=== PATIENT | female | born 1990 | race Caucasian/White ===

== ENCOUNTER 2018-02-06 01:10 | Inpatient (IN) | payer OTHER ==
--- OUTSIDE RECORDS SUMMARY | 2018-02-06 01:13 | XMS REPORT ---
:1990 Author Organization eClinicalWorks Care Team Providers Name Role Phone Eddi Oro Provider Role Unavailable Allergies No Known Allergies Problems Problem Type Condition Code Onset Dates Condition Status Assessment Diverticula of colon K57.30 Active Assessment Melena K92.1 Active Problem Diverticula of colon K57.30 Active Medications Medication Code Code Instructions Start End Status Dosage System Date Date Clonazepam [facility] [place] 2] 54148127244 0.5 MG Orally Active 1 tablet PRN for anxiety at bedtime Flagyl ND 54135373342 500 MG Orally December Active 1 tablet every 8 hrs 2017 Ciprofloxacin ND 59843336983 500 MG Orally December Active 1 tablet HCl every 12 hrs 2017 ProAir HFA [facility] [place]NOTE 2] 59976793471 108 (90 Base) Sep 24, Active 2 puffs MCG/ACT 2017 as needed Inhalation every 6 hrs Doxycycline ND 06758342932 100 MG Orally Sep 24, Active 1 capsule Hyclate every 12 hrs 2017 Phenergan [facility] [place]NOTE 2] [address]-12 25mg Po Q 12 DecemberJanuary 07, Active one hours 2017 2018 tablet Tessalon Perles [facility] [place]NOTE 2] 07341924374 100 MG Orally Sep 24, Active 1 capsule Three times a 2018 as needed day Results Name Result Date Reference Range Unit Abnormality Flag CBC (only/No Diff) CT ABDOMEN W CONTRAST Summary Purpose eClinicalWorks Submission
--- OUTSIDE RECORDS SUMMARY | 2018-02-06 01:13 | XMS REPORT ---
:1990 Author Organization eClinicalWorks Care Team Providers Name Role Phone Eddi Oro Provider Role Unavailable Allergies No Known Allergies Problems Problem Type Condition Code Onset Dates Condition Status Problem Diverticula of colon K57.30 Active Medications No Known Medications Results No Known Results Summary Purpose eClinicalWorks Submission
[2018-02-06 02:00] LABS: Absolute Lymphocytes (CBC) 2.2 K/uL (0.7-4.9); Absolute Monocytes 0.8 K/uL (0.1-1.3); Absolute Neutrophil 18.8 K/uL (1.8-8.0); Basophils % 0.4 % (0-1.3); Eosinophils % 0.9 % (0-4.4); MCH 29.7 pg (27.0-35.0); MPV 8.4 fL (7.6-11.3); Monocytes % 3.7 % (3.3-12.3); RBC Red Blood Cell Count 4.94 M/uL (3.86-4.86)
[2018-02-06 02:12] LABS: Bicarbonate 23 mEq/L (21-31); Glucose Level 146 mg/dL (65-120); Lipase 26 U/L (22-51); Potassium 3.7 mEq/L (3.6-5.0); Sodium Level 135 mEq/L (135-145)
[2018-02-06 02:18] LABS: ALT/SGPT 21 IU/L (10-60); AST/SGOT 27 IU/L (10-42); Albumin 4.1 g/dL (3.2-5.5); Alkaline Phosphatase 89 IU/L (42-121); BUN Blood Urea Nitrogen 11 mg/dL (6-20); Bilirubin Direct < 0.1 mg/dL (0-0.2); Bilirubin Total 0.4 mg/dL (0.3-1.2)
[2018-02-06] MEDS ORDERED: MORPHINE 4 MG/ML SYR ONE (02:37)
[2018-02-06] MEDS ORDERED: NA CHLORIDE 0.9% 1,000 ML ONE (02:37)
[2018-02-06 02:38] LABS: Blood Morphology Comment NOT SEEN (NOT SEEN); Platelet Estimate ADEQ
[2018-02-06] MEDS ORDERED: ONDANSETRON 4 MG/2 ML VIAL ONE ×2 (02:39→05:49)
[2018-02-06 02:43] LABS: Urine Specific Gravity >1.030 (1.005-1.030)
[2018-02-06 02:44] LABS: Urine Blood 1+ (NEG); Urine Glucose NEGATIVE (NEG); Urine Protein TRACE (NEG); Urine Specific Gravity >1.030 (1.005-1.030)
[2018-02-06 02:45] LABS: Calcium Oxalate Crystals- Ur FEW (NONE SEEN); Urine Bacteria <20 /HPF (<20); Urine Culture Reflex Order NOT NEEDED; Urine RBC <5 /HPF (NONE SEEN)
--- NOTE | 2018-02-06 05:26 | ER ---
Nurse's Notes [facility] Name: Fawn Larson Age: 27 yrs Sex: Female : 1990 Arrival Date: 02/06/2018 Time: 01:14 Bed 15 Private MD: Diagnosis: Left sided colitis;Elevated white blood cell count;Generalized abdominal pain Presentation: 02/06 01:36 Presenting complaint: Patient states: diarrhea since 1700 yesterday afternoon and has aa1 begun to have bright red blood in her stool. Also reports lower abd pain and nausea. Transition of care: patient was not received from another setting of care. Onset of symptoms was February 05, 2018 at 17:00. Risk Assessment: Do you want to hurt yourself or someone else? Patient reports no desire to harm self or others. Initial Sepsis Screen: Does the patient meet any 2 criteria? HR > 90 bpm. Does the patient have a suspected source of infection? Yes: Acute abdominal pain. Care prior to arrival: None. 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 - Social history:: Smoking status: Patient uses tobacco products, smokes one-half pack cigarettes per day. - Ebola Screening: : Patient denies exposure to infectious person Patient denies travel to an Ebola-affected area in the 21 days before illness onset. Screenin:41 Abuse screen: Denies threats or abuse. Denies injuries from another. Nutritional aa1 screening: No deficits noted. Tuberculosis screening: No symptoms or risk factors identified. Fall Risk None identified. Assessment: 01:41 General: Appears in no apparent distress. comfortable, Behavior is cooperative, aa1 appropriate for age, anxious. Pain: Complains of pain in right lower quadrant and left lower quadrant Is continuous. Neuro: Level of Consciousness is awake, alert, obeys commands, Oriented to person, place, time, situation, Moves all extremities. Full function Gait is steady, Speech is normal. Cardiovascular: Denies chest pain, palpitations, shortness of breath. Respiratory: Airway is patent Respiratory effort is even, unlabored, Respiratory pattern is regular, symmetrical. GI: Abdomen is non-distended, Bowel sounds present X 4 quads. Abd is soft X 4 quads Reports lower abdominal pain, diarrhea, bloody stool, nausea. : No signs and/or symptoms were reported regarding the genitourinary system. EENT: No signs and/or symptoms were reported regarding the EENT system. Derm: Skin is intact, is healthy with good turgor, Skin is pink, warm \T\ dry. Musculoskeletal: Circulation, motion, and sensation intact. Capillary refill < 3 seconds. 02:24 Reassessment: Patient appears in no apparent distress at this time. Patient and/or aa1 family updated on plan of care and expected duration. Pain level reassessed. Patient is alert, oriented x 3, equal unlabored respirations, skin warm/dry/pink. notified Britni in [place] that pt has finished PO contrast. 03:43 Reassessment: Patient appears in no apparent distress at this time. Patient is alert, aa1 oriented x 3, equal unlabored respirations, skin warm/dry/pink. Pt taken to CT. 04:45 Reassessment: Patient appears in no apparent distress at this time. Patient and/or aa1 family updated on plan of care and expected duration. Pain level reassessed. Patient is alert, oriented x 3, equal unlabored respirations, skin warm/dry/pink. Awaiting CT results. Vital Signs: 01:39 BP 129 / 98; Pulse 129; Resp 20; Temp 98.2(O); Pulse Ox 99% on R/A; Weight 83.01 kg; aa1 Height 5 ft. 2 in. (157.48 cm); Pain 8/10; 02:44 BP 129 / 92; Pulse 72; Resp 18; Pulse Ox 96% on R/A; aa1 03:30 BP 126 / 85; Pulse 64; Resp 16; Pulse Ox 99% on R/A; aa1 05:08 BP 119 / 79; Pulse 60; Resp 16; Pulse Ox 98% on R/A; aa1 06:30 BP 111 / 81; Pulse 59; Resp 16; Pulse Ox 96% on R/A; aa1 07:15 BP 109 / 77; Pulse 67; Resp 18; Pulse Ox 98% ; sv 01:39 Body Mass Index 33.47 (83.01 kg, 157.48 cm) aa1 ED Course: 01:14 Patient arrived in ED. es 01:35 Mireya Meier, RN is Primary Nurse. aa1 01:37 Triage completed. aa1 01:39 Arm band placed on right wrist. Patient placed in an exam room, on a stretcher. aa1 01:41 Patient has correct armband on for positive identification. Placed in gown. Bed in low aa1 position. Call light in reach. Pulse ox on. NIBP on. Warm blanket given. 01:42 Johny Goldberg NP is PHCP. pm1 01:42 Markos Bobby MD is Attending Physician. pm1 01:46 Inserted saline lock: 20 gauge in right antecubital area, using aseptic technique. oe Blood collected. 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 aa1 03:[address] via wheelchair. kw1 03:53 CT completed. Patient tolerated procedure well. Patient moved back from CT. kw1 03:58 CT Abd/Pelvis - W/Contrast In Process Unspecified. EDMS 05:25 Eddi Oro MD is Hospitalizing Provider. otto 07:37 Patient admitted, IV remains in place. intact. sv Administered Medications: 02:41 Drug: NS 0.9% 1000 ml Route: IV; Rate: 1000 ml; Site: right antecubital; aa1 02:42 Drug: morphine 4 mg Route: IVP; Site: right antecubital; aa1 02:43 Drug: Zofran 4 mg Route: IVP; Site: right antecubital; aa1 05:52 Drug: Cipro 400 mg Volume: 200 ml; Route: IVPB; Infused Over: 60 mins; Site: right ea antecubital; 05:52 Drug: Zofran 4 mg Route: IVP; Site: right antecubital; ea 05:53 Drug: Flagyl 500 mg Volume: 100 ml; Route: IVPB; Rate: 200 ml/hr; Infused Over: 30 ea mins; Site: right antecubital; 06:12 Drug: morphine 4 mg Route: IVP; Site: right antecubital; ea Outcome: 05:26 Decision to Hospitalize by Provider. otto 07:36 Admitted to Med/surg accompanied by tech, via stretcher, room 208, with chart, Report sv called to Jojo PROCTOR 07:36 Condition: stable 07:36 Instructed on the need for admit. 07:55 Patient left the ED. sv Signatures: Dispatcher [employer] Lina Ambrose, RN RN Mireya Sarabia RN RN aa1 Markos Bobby MD MD cha Salyer, Edna es Marinas, Patrick, CYCLE MANAGER CYCLE MANAGER pm1 Larry Mari Elena, RN RN Zelda Brink kw1
--- NOTE | 2018-02-06 05:27 | EDPHYS ---
Physician Documentation [facility] Name: Fwan Larson Age: 27 yrs Sex: Female : 1990 Arrival Date: 02/06/2018 Time: 01:14 Bed 15 Private MD: ED Physician Markos Bobby HPI: 02/06 02:00 This 27 yrs old Female presents to ER via Ambulatory with complaints of pm1 Bloody Stools, Abdominal Pain. 02:00 The patient presents with abdominal pain in the lower abdomen. pm1 02:00 Onset: The symptoms/episode began/occurred yesterday. The symptoms do not radiate. pm1 Associated signs and symptoms: Pertinent positives: blood in stools, Pertinent negatives: chest pain, dysuria, fever, shortness of breath. The symptoms are described as achy, intermittent. Modifying factors: The symptoms are alleviated by nothing, the symptoms are aggravated by nothing. Severity of pain: in the emergency department the pain is actually worse. The patient has experienced a previous episode, approximately 1 months ago. Patient was diagnosed with diverticulitis 1 month ago by PCP with CT scan and resolved with outpatient PO antibiotics. Patient reports constant pain at that time that was located in the left lower quadrant with some blood in her stool. Today's pain is intermittent across the lower abdomen. 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 - Social history:: Smoking status: Patient uses tobacco products, smokes one-half pack cigarettes per day. - Ebola Screening: : Patient denies exposure to infectious person Patient denies travel to an Ebola-affected area in the 21 days before illness onset. ROS: 02:00 Constitutional: Negative for fever, chills, and weight loss, Eyes: Negative for injury, pm1 pain, redness, and discharge, ENT: Negative for injury, pain, and discharge, Neck: Negative for injury, pain, and swelling, Cardiovascular: Negative for chest pain, palpitations, and edema, Respiratory: Negative for shortness of breath, cough, wheezing, and pleuritic chest pain, Back: Negative for injury and pain, : Negative for injury, bleeding, discharge, and swelling, MS/Extremity: Negative for injury and deformity, Skin: Negative for injury, rash, and discoloration. 02:00 Neuro: Negative for headache, weakness, numbness, tingling, and seizure. 02:00 Abdomen/GI: Positive for abdominal pain, nausea, rectal bleeding, Negative for vomiting, diarrhea, constipation. Exam: 02:00 Constitutional: This is a well developed, well nourished patient who is awake, alert, pm1 and in no acute distress. Head/Face: Normocephalic, atraumatic. Eyes: Pupils equal round and reactive to light, extra-ocular motions intact. Lids and lashes normal. Conjunctiva and sclera are non-icteric and not injected. Cornea within normal limits. Periorbital areas with no swelling, redness, or edema. ENT: Nares patent. No nasal discharge, no septal abnormalities noted. Tympanic membranes are normal and external auditory canals are clear. Oropharynx with no redness, swelling, or masses, exudates, or evidence of obstruction, uvula midline. Mucous membranes moist. Neck: Trachea midline, no thyromegaly or masses palpated, and no cervical lymphadenopathy. Supple, full range of motion without nuchal rigidity, or vertebral point tenderness. No Meningismus. Chest/axilla: Normal chest wall appearance and motion. Nontender with no deformity. No lesions are appreciated. Cardiovascular: Regular rate and rhythm with a normal S1 and S2. No gallops, murmurs, or rubs. Normal PMI, no JVD. No pulse deficits. Respiratory: Lungs have equal breath sounds bilaterally, clear to auscultation and percussion. No rales, rhonchi or wheezes noted. No increased work of breathing, no retractions or nasal flaring. 02:00 Back: No spinal tenderness. No costovertebral tenderness. Full range of motion. Skin: Warm, dry with normal turgor. Normal color with no rashes, no lesions, and no evidence of cellulitis. MS/ Extremity: Pulses equal, no cyanosis. Neurovascular intact. Full, normal range of motion. 02:00 Abdomen/GI: Inspection: abdomen appears normal, Bowel sounds: normal, Palpation: mild abdominal tenderness, in the right lower quadrant and left lower quadrant, mass, is not appreciated, rebound tenderness, is not appreciated. 02:00 Neuro: Orientation: is normal, Motor: moves all fours. 03:00 Abdomen/GI: Rectal exam: rectal tone normal, Stool: guaiac negative, hemorrhoid(s), pm1 external, with inflammation, with pain, without thrombosis, mass, is not appreciated, swelling, is not appreciated, Jayashree PROCTOR. Vital Signs: 01:39 BP 129 / 98; Pulse 129; Resp 20; Temp 98.2(O); Pulse Ox 99% on R/A; Weight 83.01 kg; aa1 Height 5 ft. 2 in. (157.48 cm); Pain 8/10; 02:44 BP 129 / 92; Pulse 72; Resp 18; Pulse Ox 96% on R/A; aa1 03:30 BP 126 / 85; Pulse 64; Resp 16; Pulse Ox 99% on R/A; aa1 05:08 BP 119 / 79; Pulse 60; Resp 16; Pulse Ox 98% on R/A; aa1 06:30 BP 111 / 81; Pulse 59; Resp 16; Pulse Ox 96% on R/A; aa1 07:15 BP 109 / 77; Pulse 67; Resp 18; Pulse Ox 98% ; sv 01:39 Body Mass Index 33.47 (83.01 kg, 157.48 cm) aa1 MDM: 01:58 Patient medically screened. otto 05:19 Patient medically screened. toto 02/06 01:46 Order name: Basic Metabolic Panel; Complete Time: 02:28 pm02/06 01:46 Order name: CBC with Diff; Complete Time: 02:47 pm1 02/06 01:46 Order name: Creatinine for Radiology; Complete Time: 02:15 pm02/06 01:46 Order name: Hepatic Function; Complete Time: 02:28 pm02/06 01:46 Order name: Lipase; Complete Time: 02:28 pm02/06 01:46 Order name: Urine Microscopic Only; Complete Time: 02:47 pm1 02/06 02:10 Order name: Urine Dipstick--Ancillary (enter results); Complete Time: 02:47 cc 02/06 02:11 Order name: Urine --Ancillary (enter results) cc 02/06 02:12 Order name: Urine --Ancillary; Complete Time: 02:47 EDMS 02/06 02:12 Order name: Manual Differential; Complete Time: 02:47 EDMS 02/06 05:22 Order name: Stool Culture [facility] 02/06 05:22 Order name: CDIFF [facility] 02/06 05:22 Order name: Fecal Leukocyte Stain [facility] 02/06 05:31 Order name: Basic Metabolic Panel EDAK 02/06 01:46 Order name: CT Abd/Pelvis - W/Contrast pm1 02/06 05:30 Order name: CONS Physician Consult EDMS 02/06 05:31 Order name: Basic Metabolic Panel EDMS 02/06 05:31 Order name: CBC with Automated Diff EDMS 02/06 05:31 Order name: CBC with Automated Diff EDMS 02/06 05:32 Order name: Lipase EDMS 02/06 05:32 Order name: Lipase EDMS 02/06 05:32 Order name: Liver (Hepatic) Function EDMS 02/06 05:32 Order name: Liver (Hepatic) Function EDMS 02/06 01:46 Order name: Urine Test (obtain specimen); Complete Time: 02:08 pm02/06 01:46 Order name: IV Saline Lock; Complete Time: 02:10 pm02/06 01:46 Order name: Labs collected and sent; Complete Time: 02:10 pm02/06 01:46 Order name: Urine Dipstick-Ancillary (obtain specimen); Complete Time: 02:08 pm1 Administered Medications: 02:41 Drug: NS 0.9% 1000 ml Route: IV; Rate: 1000 ml; Site: right antecubital; aa1 02:42 Drug: morphine 4 mg Route: IVP; Site: right antecubital; aa1 02:43 Drug: Zofran 4 mg Route: IVP; Site: right antecubital; aa1 05:52 Drug: Cipro 400 mg Volume: 200 ml; Route: IVPB; Infused Over: 60 mins; Site: right ea antecubital; 05:52 Drug: Zofran 4 mg Route: IVP; Site: right antecubital; ea 05:53 Drug: Flagyl 500 mg Volume: 100 ml; Route: IVPB; Rate: 200 ml/hr; Infused Over: 30 ea mins; Site: right antecubital; 06:12 Drug: morphine 4 mg Route: IVP; Site: right antecubital; ea Disposition: 02/06/18 05:26 Hospitalization ordered by Eddi Oro for Inpatient Admission. Preliminary diagnosis are Left sided colitis, Elevated white blood cell count, Generalized abdominal pain. - Bed requested for Telemetry/MedSurg (Inpatient). - Status is Inpatient Admission. sv - Condition is Fair. - Problem is new. - Symptoms have improved. UTI on Admission? No Addendum: 02/08/2018 06:53 Co-signature as Attending Physician, Markos Bobby MD I agree with the assessment and c jennings plan of care. Signatures: Dispatcher [employer] EDMS Zelda Maxwell RN RN Lina Mendez RN Mireya Rousseau RN RN aa1 Markos Bobby MD MD cha Marinas, Patrick, PURCHASING ASSOCIATE PURCHASING ASSOCIATE pm1 Deborah Mora RN RN ea Corrections: (The following items were deleted from the chart) 02/06 06:12 05:26 Hospitalization Ordered by Eddi Oro MD for Inpatient Admission. Preliminary diagnosis is Left sided colitis; Elevated white blood cell count; Generalized abdominal pain. Bed requested for Telemetry/MedSurg (Inpatient). Status is Inpatient Admission. Condition is Fair. Problem is new. Symptoms have improved. UTI on Admission? No. [facility] 07:55 06:12 02/06/2018 05:26 Hospitalization Ordered by Eddi Oro MD for Inpatient sv Admission. Preliminary diagnosis is Left sided colitis; Elevated white blood cell count; Generalized abdominal pain. Bed requested for Telemetry/MedSurg (Inpatient). Status is Inpatient Admission. Condition is Fair. Problem is new. Symptoms have improved. UTI on Admission? No. kl
[2018-02-06] MEDS ORDERED: MORPHINE 4 MG/ML SYR IV PRN (05:29)
[2018-02-06] MEDS ORDERED: ACETAMINOPHEN 500 MG TAB PO PRN (05:29)
[2018-02-06] MEDS ORDERED: METRONIDAZOLE 500mg IVPB 500 MG/100 ML BAG IV ONE (05:37)
[2018-02-06] MEDS ORDERED: CIPROFLOXACIN 400mg IV 400 MG/200 ML BAG IV ONE (05:37)
[2018-02-06] MEDS ORDERED: Morphine 2 MG/2 ML SYR ONE (06:04)
[2018-02-06] MEDS: D5 0.45 NS 1,000 ML IV SCH ×3 (09:00→21:33)
[2018-02-06] MEDS ORDERED: FAMOTIDINE 20 MG/2 ML VIAL IV SCH (09:00)
[2018-02-06] MEDS ORDERED: clonazePAM 0.5 MG TAB PO PRN (09:45)
--- NOTE | 2018-02-06 09:59 | RAD REPORT ---
EXAM DESCRIPTION: CT - Abdomen Pelvis W Contrast - 02/06/2018 6:48 am CLINICAL HISTORY: Abdominal pain, diarrhea, bloody stools, prior diverticulitis and polycystic ovary disease A preliminary written report was provided at the time of the study, and the report was reviewed prio r to final dictation. COMPARISON: CT imaging December 28 TECHNIQUE: Biphasic, helical CT imaging of the abdomen and pelvis was performed following 100 ml non -ionic IV contrast. Oral contrast was given. All CT scans are performed using dose optimization technique as appropriate and may include automated exposure control or mA/KV adjustment according to patient size. FINDINGS: No suspicious findings in the lung bases. The liver, spleen, and pancreas show no suspicious findings. Liver attenuation is borderline fatty in filtrated. No gallbladder or biliary tree abnormality. Symmetric renal function is seen with no hydronephrosis or suspicious renal mass. No pyelonephritis o r acute renal parenchymal process. No adrenal abnormality. Mostly contracted urinary bladder shows no suspicious finding. Uterus and ovaries also without suspicious finding. No gastric dilatation or wall thickening. Contrast in the distal esophagus could be from reflux or de creased peristalsis. No acute small bowel finding. No appendicitis findings. Wall thickening and jorge a involves the colon. This is [id number] in degree from hepatic flexure to rectum. Sigmoid and ascending wall thickening is more mild in degree. No free air, free fluid or inflammatory stranding. No significant hernia, mass or bulky lymphadenopathy. Patient has a very minimal umbilical hernia. No suspicious bony findings. IMPRESSION: Mild to moderate pancolitis pattern. No free air, abscess or surgically emergent finding . Nonacute findings detailed in the body of the report.
--- NOTE | 2018-02-06 10:04 | P.HP ---
Certification for Inpatient Patient admitted to: Observation With expected LOS: <2 Midnights Patient will require the following post-hospital care: None Practitioner: I am a practitioner with admitting privileges, knowledge of patient current condition, hospital course, and medical plan of care. 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 She suddenly started having abdominal pain and diarrhea last night. She had to go to the [facility] several times. When she started having some bright red blood with the diarrhea. Was in the bowel not on the paper. She had abdominal pain and nausea. She denied any recent travel. Visits to hospitals or nursing homes. No recent camping or fishing. No recent antibiotics. She was able to tolerate water. She was having nause. However did not vomit with water Allergies coconut Allergy (Verified 02/06/18 09:02) Nausea/Vomiting colloidal oatmeal Allergy (Verified 02/06/18 09:02) Anaphylaxis Home Medications: Clonazepam [Klonopin] 0.5 mg PO DAILY PRN 02/06/18 Review of Systems 10-point ROS is otherwise unremarkable Gastrointestinal: Nausea, Abdominal Pain, Diarrhea Physical Examination - Vital Signs Temperature: 98.2 F Blood Pressure: 109/77 Pulse: 67 Respirations: 18 - Physical Exam General: Alert, In no apparent distress HEENT: Atraumatic, PERRLA, Mucous membr. moist/pink, EOMI, Sclerae nonicteric Neck: Supple, 2+ carotid pulse no bruit, No LAD, Without JVD or thyroid abnormality Respiratory: Clear to auscultation bilaterally, Normal air movement Cardiovascular: Regular rate/rhythm, Normal S1 S2 Gastrointestinal: Normal bowel sounds, No tenderness Musculoskeletal: No tenderness Integumentary: No rashes Neurological: Normal gait, Normal speech, Normal strength at 5/5 x4 extr, Normal tone, Normal affect Lymphatics: No axilla or inguinal lymphadenopathy - Studies Laboratory Data (last 24 hrs) 02/06/18 01:45: Creatinine 0.72 02/06/18 01:45: WBC 22.1 H*, Hgb 14.7, Hct 43.0, Plt Count 411 H 02/06/18 01:45: Sodium 135, Potassium 3.7, BUN 11, Creatinine 0.67, Glucose 146 H, Total Bilirubin 0.4, AST 27, ALT 21, Alkaline Phosphatase 89, Lipase 26 Assessment and Plan - Problems (Diagnosis) (1) Diverticulitis Current Visit: Yes Status: Acute Plan: HB is stable. Will continue iv fluids. Will await the results of the ct scan and c dif. Will start her on a clear liquid diet. Awaiting Dr. Ahmadi's input. (2) Anxiety Current Visit: Yes Status: Acute Plan: Patient is fairly stable will continue her xanax in house. As an outpatient will work on weaning her off it. However not an appropriate discussion during an acute illness. Discharge Plan: Home Plan to discharge in: 48 Hours - Advance Directives Does patient have a Living Will: No Does patient have a Durable POA for Healthcare: No - Code Status/Comfort Care Code Status Assessed: Yes Code Status: Full Code Physician Review: Patient Assessed, Agree with Above Assessment and Plan Critical Care: No Time Spent Managing Pts Care (In Minutes): 30
[2018-02-06] MEDS: Morphine 2 MG/2 ML SYR IV PRN ×3 (10:47→21:29)
[2018-02-06] MEDS: METRONIDAZOLE 500mg IVPB 500 MG/100 ML BAG IV SCH ×3 (15:58→23:48)
[2018-02-06] MEDS: ENOXAPARIN 40 MG/0.4 ML SQ SCH (15:58)
[2018-02-06] MEDS: ONDANSETRON 4 MG/2 ML VIAL IV PRN (16:05)
[2018-02-06] MEDS: CIPROFLOXACIN 400mg IV 400 MG/200 ML BAG IV SCH (21:30)
[2018-02-07 04:57] LABS: Absolute Lymphocytes (CBC) 2.7 K/uL (0.7-4.9); Absolute Monocytes 0.6 K/uL (0.1-1.3); Basophils % 0.7 % (0-1.3); Eosinophils % 4.2 % (0-4.4); Hematocrit 36.6 % (36.0-45.0); MCH 30.1 pg (27.0-35.0); MCV 88.9 fL (80-100); MPV 8.1 fL (7.6-11.3); RBC Red Blood Cell Count 4.11 M/uL (3.86-4.86)
[2018-02-07 05:37] LABS: Bicarbonate 27 mEq/L (21-31); Glucose Level 102 mg/dL (65-120); Potassium 4.1 mEq/L (3.6-5.0); Sodium Level 140 mEq/L (135-145)
[2018-02-07 05:38] LABS: BUN Blood Urea Nitrogen < 5 mg/dL (6-20)
[2018-02-07] MEDS: METRONIDAZOLE 500mg IVPB 500 MG/100 ML BAG IV SCH ×2 (05:55→11:20)
[2018-02-07] MEDS: D5 0.45 NS 1,000 ML IV SCH ×3 (05:58→20:46)
[2018-02-07 08:45] LABS: Urine Appearance CLEAR; Urine Bilirubin NEGATIVE (NEG); Urine Blood NEGATIVE (NEG); Urine Color YELLOW; Urine Glucose NEGATIVE (NEG); Urine Protein NEGATIVE (NEG); Urine Specific Gravity <=1.005 (1.005-1.030); Urine Urobilinogen 0.2 mg/dL (0.2-1.0)
[2018-02-07] MEDS: PANTOPRAZOLE 40MG TABLET PO SCH (08:45)
[2018-02-07] MEDS: CIPROFLOXACIN 400mg IV 400 MG/200 ML BAG IV SCH ×2 (08:45→20:46)
[2018-02-07 08:46] LABS: Urine Microscopic Reflex NO UMIC
[2018-02-07] MEDS: ONDANSETRON 4 MG/2 ML VIAL IV PRN (11:20)
--- NOTE | 2018-02-07 12:40 | P.PN ---
Subjective Date of Service: 02/07/18 Primary Care Provider: Preethi Chief Complaint: bright red blood per rectum Subjective: Improving Review of Systems 10-point ROS is otherwise unremarkable Gastrointestinal: Diarrhea Physical Examination - Vital Signs Temperature: 98.8 F Blood Pressure: 109/63 Pulse: 60 Respirations: 20 Pulse Ox (%): 99 - Physical Exam General: Alert, In no apparent distress HEENT: Atraumatic, PERRLA, EOMI Neck: Supple, JVD not distended Respiratory: Clear to auscultation bilaterally, Normal air movement Cardiovascular: Regular rate/rhythm, Normal S1 S2 Gastrointestinal: Normal bowel sounds, No tenderness Musculoskeletal: No tenderness Integumentary: No rashes Neurological: Normal speech, Normal tone, Normal affect Lymphatics: No axilla or inguinal lymphadenopathy Assessment & Plan - Problems (Diagnosis) (1) Diverticulitis Current Visit: Yes Status: Acute Plan: still complaining of diarrhea. She is improving, able to tolerate clear liquid diet. Having less nausea. Will start her on lomotil. Advance her diet as tolerated. (2) Anxiety Current Visit: Yes Status: Acute Plan: Patient is fairly stable will continue her xanax in house. As an outpatient will work on weaning her off it. However not an appropriate discussion during an acute illness. Discharge Plan: Home Plan to discharge in: 24 Hours - Code Status/Comfort Care Code Status Assessed: No Code Status: Full Code Physician Review: Patient Assessed, Agree with Above Assessment and Plan Critical Care: No Time Spent Managing Pts Care (In Minutes): 20
[2018-02-07] MEDS: DIPHENOX/ATROP SULF 1 TAB PO PRN ×2 (14:30→20:56)
[2018-02-07] MEDS: ENOXAPARIN 40 MG/0.4 ML SQ SCH (18:35)
[2018-02-08] MEDS: D5 0.45 NS 1,000 ML IV SCH (05:27)
[2018-02-08] MEDS: PANTOPRAZOLE 40MG TABLET PO SCH (05:27)
[2018-02-08] MEDS ORDERED: MORPHINE 4 MG/ML SYR IV PRN (07:58)
[2018-02-08] MEDS: CIPROFLOXACIN 400mg IV 400 MG/200 ML BAG IV SCH (08:27)
--- NOTE | 2018-02-08 12:55 | P.DS ---
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 She suddenly started having abdominal pain and diarrhea last night. She had to go to the [facility] times. When she started having some bright red blood with the diarrhea. Was in the bowel not on the paper. She had abdominal pain and nausea. She denied any recent travel. Visits to hospitals or nursing homes. No recent camping or fishing. No recent antibiotics. She was able to tolerate water. She was having nause. However did not vomit with water Hospital Course: patient was admitted on iv fluids and antibiotics. She had her diet slowly advanced. She has been tolerating this. Her c dif was negative. will discharge her home on Cipro and lomotil. Follow up in the office in 2 weeks. Vital Signs/Physical Exam: Temp Pulse Resp BP Pulse Ox 96.7 F L 58 16 111/71 98 02/08/18 12:00 02/08/18 12:00 02/08/18 12:00 02/08/18 12:00 02/08/18 12:00 General: Alert, In no apparent distress HEENT: Atraumatic, PERRLA, EOMI Neck: Supple, JVD not distended Respiratory: Clear to auscultation bilaterally, Normal air movement Cardiovascular: Regular rate/rhythm, Normal S1 S2 Gastrointestinal: Normal bowel sounds, No tenderness Musculoskeletal: No tenderness Integumentary: No rashes Neurological: Normal speech, Normal tone, Normal affect Lymphatics: No axilla or inguinal lymphadenopathy Laboratory Data at Discharge: WBC 7.7 K/uL (4.3-10.9) D 02/07/18 04:22 Hgb 12.4 g/dL (12.0-15.0) 02/07/18 04:22 Hct 36.6 % (36.0-45.0) 02/07/18 04:22 Plt Count 302 K/uL (152-406) D 02/07/18 04:22 Sodium 140 mEq/L (135-145) 02/07/18 04:22 Potassium 4.1 mEq/L (3.6-5.0) 02/07/18 04:22 BUN < 5 mg/dL (6-20) L 02/07/18 04:22 Creatinine 0.75 mg/dL (0.44-1.00) 02/07/18 04:22 Glucose 102 mg/dL (65-120) 02/07/18 04:22 Total Bilirubin 0.4 mg/dL (0.3-1.2) 02/06/18 01:45 AST 27 IU/L (10-42) 02/06/18 01:45 ALT 21 IU/L (10-60) 02/06/18 01:45 Alkaline Phosphatase 89 IU/L (42-121) 02/06/18 01:45 Lipase 26 U/L (22-51) 02/06/18 01:45 Home Medications: Clonazepam [Klonopin] 0.5 mg PO DAILY PRN 02/06/18 Ciprofloxacin HCl [Cipro 500 MG Tablet] 500 mg PO BID 5 Days #10 tab 02/08/18 Diphenox/Atropine [Lomotil] 1 tab PO TIDP PRN #20 tab 02/08/18 New Medications: Ciprofloxacin HCl [Cipro 500 MG Tablet] 500 mg PO BID 5 Days #10 tab Diphenox/Atropine [Lomotil] 1 tab PO TIDP PRN #20 tab PRN Reason: Diarrhea Diet: Regular Activity: Ad sarah Followup: Eddi Oro MD [ACTIVE - CAN ADMIT] - 1-2 Weeks (Follow up in office in 1-2 weeks. Call to schedule an appointment. ) Time spent managing pt's care (in minutes): 25
== END 2018-02-08 13:00 | disposition home or self-care (01) | DRG 392 ==
LOC: ER 01:10 → ERHOLD 05:27 → 2ND 07:37
PROVIDERS: ADMIT Internal Medicine; ATTEND Internal Medicine
DX: K57.92 Diverticulitis of intestine, part unspecified, without perforation or abscess without bleeding (principal); F41.9 Anxiety disorder, unspecified; Z91.018 Allergy to other foods
CPT/HCPCS: 36415; 74177; 80048; 80076; 81003; 81015; 81025; 83690; 85025; 87045; 87046; 87493; 89055; 96374; 96375; 99285; J0744; J1650; J2270; J2405; J7030; Q9967

== ENCOUNTER 2018-10-28 07:38 | Emergency (ER) | payer OTHER ==
--- OUTSIDE RECORDS SUMMARY | 2018-10-28 07:40 | XMS REPORT ---
:1990 Author Organization eClinicalWorks Care Team Providers Name Role Phone Gina Prater Provider Role Unavailable Allergies, Adverse Reactions, Alerts Substance Reaction Event Type Oat meal, tongue swells, NKDA Info Not Available Non Drug Allergy Problems Problem Type Condition Code Onset Dates Condition Status Assessment Non-recurrent acute suppurative H66.003 Active otitis media of both ears without spontaneous rupture of tympanic membranes Problem Calcaneal spur of left foot M77.32 Active Assessment Anxiety F41.9 Active Assessment Cigarette nicotine dependence F17.210 Active without complication Problem Cigarette nicotine dependence F17.210 Active without complication Problem Diverticular disease K57.90 Active Problem Anxiety F41.9 Active Problem Seasonal and perennial allergic J30.9 Active rhinitis Problem Diverticula of colon K57.30 Active Problem Depression with anxiety F41.8 Active Problem Sinus problem J34.9 Active Medications Medication Code Code Instructions Start End Status Dosage System Date Date Etodolac [facility] 16451428278 300 MG Orally Jul 13, Active 1 capsule Twice a day 2018 with food Clonazepam [facility] 06238198716 0.5 MG Orally Active 1 tablet PRN for anxiety at bedtime ProAir HFA [facility] 11517368760 108 (90 Base) Sep 24, Active 2 puffs as MCG/ACT 2018 needed Inhalation every 6 hrs Amoxicillin ND 37244246069 875 MG Orally Sep 14, Sep 21, Active 1 capsule Twice a day 2018 2019 BuPROPion HCl ND 97835886099 150 MG Orally Sep 14, Active 1 tablet ER (Smoking Once a day 2019 in the Det) morning Results No Known Results Summary Purpose eClinicalWorks Submission
--- OUTSIDE RECORDS SUMMARY | 2018-10-28 07:40 | XMS REPORT ---
[...] End Status Dosage System Date Date Clonazepam [facility] 67417231402 0.5 MG Orally Active 1 tablet PRN for anxiety at bedtime Flagyl ND 49500146432 500 MG Orally December Active 1 tablet every 8 hrs 2017 Ciprofloxacin ND 63952670345 500 MG Orally December Active 1 tablet HCl every 12 hrs 2017 ProAir HFA [facility] 41992837156 108 (90 Base) Sep 24, Active 2 puffs MCG/ACT 2017 as needed Inhalation every 6 hrs Doxycycline ND 17952590828 100 MG Orally Sep 24, Active 1 capsule Hyclate every 12 hrs 2017 Phenergan [facility] [address]-93 25mg Po Q 12 DecemberJanuary 07, Active one hours 2017 2018 tablet Tessalon Perles [facility] 45716752344 100 MG Orally Sep 24, Active 1 capsule Three times a 2018 as needed day Results Name Result Date Reference Range Unit Abnormality Flag CBC (only/No Diff) CT ABDOMEN W CONTRAST Summary Purpose eClinicalWorks Submission
[2018-10-28] MEDS ORDERED: MORPHINE 4 MG/ML SYR ONE ×2 (08:11→09:39)
[2018-10-28] MEDS ORDERED: ONDANSETRON 4 MG/2 ML VIAL ONE (08:11)
[2018-10-28 08:21] LABS: Absolute Lymphocytes (CBC) 2.4 K/uL (0.7-4.9); Absolute Monocytes 0.7 K/uL (0.1-1.3); Absolute Neutrophil 6.7 K/uL (1.8-8.0); Basophils % 0.3 % (0-1.3); Eosinophils % 2.5 % (0-4.4); Hematocrit 41.3 % (36.0-45.0); Lymphocytes % 23.9 % (15.3-44.8); MPV 8.1 fL (7.6-11.3); RBC Red Blood Cell Count 4.56 M/uL (3.86-4.86)
[2018-10-28 08:40] LABS: Albumin 3.7 g/dL (3.4-5.0); Bilirubin Direct 0.2 mg/dL (0-0.2); Bilirubin Total 0.6 mg/dL (0.2-1.0); Protein, Total 7.5 g/dL (6.4-8.2)
--- NOTE | 2018-10-28 09:12 | RAD REPORT ---
EXAM DESCRIPTION: CTAbdomen Pelvis W Contrast - 10/28/2018 8:59 am CLINICAL HISTORY: Abdominal pain. iv only;Abd pain COMPARISON: Abdomen Pelvis W Contrast dated 02/06/2018; Abdomen Pelvis W Contrast dated 12/28/2017 TECHNIQUE: Biphasic CT imaging of the abdomen and pelvis was performed with 100 ml non-ionic IV cont rast. All CT scans are performed using dose optimization technique as appropriate and may include automated exposure control or mA/KV adjustment according to patient size. FINDINGS: The lung bases are clear. The liver, spleen, pancreas, adrenal glands and kidneys are within normal limits. No bowel obstruction, free air or abscess. Prominent sigmoid diverticulosis is present with wall thic kening and mild to moderate pericolonic inflammatory changes in the fat. Small amount of free fluid i s also present in the pelvis. The appendix is normal. Small fat containing umbilical hernia. No evide nce of significant lymphadenopathy. No suspicious bony findings. IMPRESSION: Mild to moderate acute sigmoid diverticulitis is present without abscess.
--- NOTE | 2018-10-28 09:25 | ER ---
Nurse's Notes [facility] Name: Fawn Larson Age: 28 yrs Sex: Female : 1990 Arrival Date: 10/28/2018 Time: 07:41 Bed 5 Private MD: VALENTINA DURAN Diagnosis: Diverticulitis of large intestine without perforation or abscess without bleeding Presentation: 10/28 07:50 Presenting complaint: Patient states: Nausea and LLQ pain started Thursday, has jl7 ultrasound to rule out a cyst scheduled for today but can't take the pain. Last BM Thursday, diarrhea. Transition of care: patient was not received from another setting of care. Onset of symptoms was October 25, 2018. Risk Assessment: Do you want to hurt yourself or someone else? Patient reports no desire to harm self or others. Initial Sepsis Screen: Does the patient meet any 2 criteria? No. Patient's initial sepsis screen is negative. Does the patient have a suspected source of infection? No. Patient's initial sepsis screen is negative. Care prior to arrival: None. 07:50 Method Of Arrival: Ambulatory 7 07:50 Acuity: MCKENNA 3 jl7 Triage Assessment: 07:53 General: Appears in no apparent distress. uncomfortable, Behavior is calm, cooperative, jl7 appropriate for age. Pain: Complains of pain in left lower quadrant Pain does not radiate. Pain currently is 8 out of 10 on a pain scale. Pain began 2-3 days ago. Is continuous. Neuro: Level of Consciousness is awake, alert, obeys commands, Oriented to person, place, time, situation. Cardiovascular: Patient's skin is warm and dry. Respiratory: Airway is patent Respiratory effort is even, unlabored, Respiratory pattern is regular, symmetrical. GI: Abdomen is round non-distended, Stools are reported to be diarrhea. Last BM was October 25, 2018. Reports diarrhea, nausea, Patient currently denies vomiting. : No signs and/or symptoms were reported regarding the genitourinary system. Derm: Skin is pink, warm \T\ dry. 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 - Social history:: Smoking status: Patient uses tobacco products, smokes one-half pack cigarettes per day. - Ebola Screening: : No symptoms or risks identified at this time. Screenin:17 Abuse screen: Denies threats or abuse. Denies injuries from another. Nutritional jl7 screening: No deficits noted. Tuberculosis screening: No symptoms or risk factors identified. Fall Risk IV access (20 points). Total Nunes Fall Scale indicates No Risk (0-24 pts). Assessment: 08:00 General: See triage assessment. jl7 09:00 Reassessment: Patient appears in no apparent distress at this time. Patient and/or jl7 family updated on plan of care and expected duration. Pain level reassessed. Patient is alert, oriented x 3, equal unlabored respirations, skin warm/dry/pink. Reports decreased pain rated 4/10. 09:45 Reassessment: Pain rated 2/10 at this time. Patient states feeling better. Patient jl7 states symptoms have improved. Vital Signs: 07:53 BP 107 / 63; Pulse 66; Resp 16 S; Pulse Ox 99% on R/A; Weight 77.11 kg (R); Height 5 7 ft. 2 in. (157.48 cm) (R); Pain 8/10; 09:00 BP 101 / 63; Pulse 65; Resp 16 S; Pulse Ox 99% on R/A; Pain 4/10; jl7 09:46 BP 106 / 67; Pulse 64; Resp 16 S; Pulse Ox 99% on R/A; Pain 2/10; jl7 07:53 Body Mass Index 31.09 (77.11 kg, 157.48 cm) 7 ED Course: 07:41 Patient arrived in ED. rg4 07:42 VALENTINA DURAN is Private Physician. rg4 07:45 Viet Beach PA is PHCP. jr8 07:45 Jeanmarie Jimenes MD is Attending Physician. jr8 07:49 Pooja White RN is Primary Nurse. jl7 07:52 Triage completed. jl7 07:53 Arm band placed on right wrist. jl7 08:06 Urine collected: clean catch specimen, cloudy. 3 08:17 Patient has correct armband on for positive identification. Bed in low position. Call [facility] light in reach. Side rails up X 1. Pulse ox on. NIBP on. Warm blanket given. 08:17 Initial lab(s) drawn, by me, sent to lab. Inserted saline lock: 20 gauge in right jl7 antecubital area, using aseptic technique. Blood collected. 08:57 CT completed. Patient tolerated procedure well. Patient moved to CT via wheelchair. Patient moved back from CT. 08:58 CT Abd/Pelvis - W/Contrast In Process Unspecified. EDMS 09:46 No provider procedures requiring assistance completed. IV discontinued, intact, jl7 bleeding controlled, No redness/swelling at site. Pressure dressing applied. Administered Medications: 08:08 Drug: Zofran 4 mg Route: IVP; Site: right antecubital; jl7 09:00 Follow up: Response: No adverse reaction jl7 08:10 Drug: morphine 4 mg Route: IVP; Site: right antecubital; jl7 09:00 Follow up: Response: No adverse reaction; Pain is decreased jl7 09:30 Drug: Cipro 500 mg Route: PO; jl7 09:46 Follow up: Response: Medication administered at discharge. jl7 09:30 Drug: Flagyl 500 mg Route: PO; jl7 09:46 Follow up: Response: Medication administered at discharge. jl7 09:32 Drug: morphine 4 mg Route: IVP; Site: right antecubital; jl7 09:47 Follow up: Response: No adverse reaction; Pain is decreased jl7 Outcome: 09:25 Discharge ordered by . jr8 09:46 Discharged to home ambulatory, with family. jl7 09:46 Condition: stable 09:46 Discharge instructions given to patient, Instructed on discharge instructions, follow up and referral plans. medication usage, Demonstrated understanding of instructions, follow-up care, medications, Prescriptions given X 4. 09:48 Patient left the ED. jl7 Signatures: Dispatcher [employer] EDAngie Gordillo Josh, PA PA jr8 Yaima Joel4 Pooja White RN RN jl7 Gracie Kumari 3
--- NOTE | 2018-10-28 09:26 | EDPHYS ---
Physician Documentation [facility] Name: Fawn Larson Age: 28 yrs Sex: Female : 1990 Arrival Date: 10/28/2018 Time: 07:41 Bed 5 Private MD: VALENTINA DURAN ED Physician Jeanmarie Jimenes HPI: 10/28 07:54 This 28 yrs old Female presents to ER via Ambulatory with complaints of jr8 Abdominal Pain. 07:54 The patient presents with abdominal pain in the left lower quadrant. Onset: The jr8 symptoms/episode began/occurred acutely, 3 day(s) ago. The symptoms do not radiate. Associated signs and symptoms: Pertinent positives: nausea. The symptoms are described as sharp. Modifying factors: The symptoms are alleviated by nothing, the symptoms are aggravated by food, movement. Severity of pain: At its worst the pain was moderate in the emergency department the pain is unchanged. The patient has experienced similar episodes in the past, a few times. The patient has not recently seen a physician. History of diverticulitis in the past. Feels that this is another flare up . 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 - Social history:: Smoking status: Patient uses tobacco products, smokes one-half pack cigarettes per day. - Ebola Screening: : No symptoms or risks identified at this time. ROS: 07:54 Eyes: Negative for injury, pain, redness, and discharge, ENT: Negative for injury, jr8 pain, and discharge, Neck: Negative for injury, pain, and swelling, Cardiovascular: Negative for chest pain, palpitations, and edema, Respiratory: Negative for shortness of breath, cough, wheezing, and pleuritic chest pain, Back: Negative for injury and pain, MS/Extremity: Negative for injury and deformity, Skin: Negative for injury, rash, and discoloration, Neuro: Negative for headache, weakness, numbness, tingling, and seizure. 07:54 Abdomen/GI: Positive for abdominal pain, nausea, constipation, Negative for vomiting, diarrhea, abdominal distension, anorexia, dysphagia, hematemesis, black/tarry stool, rectal pain, rectal bleeding, bowel incontinence, flatulence. Exam: 07:54 Eyes: Pupils equal round and reactive to light, extra-ocular motions intact. Lids and jr8 lashes normal. Conjunctiva and sclera are non-icteric and not injected. Cornea within normal limits. Periorbital areas with no swelling, redness, or edema. ENT: Nares patent. No nasal discharge, no septal abnormalities noted. Tympanic membranes are normal and external auditory canals are clear. Oropharynx with no redness, swelling, or masses, exudates, or evidence of obstruction, uvula midline. Mucous membranes moist. Neck: Trachea midline, no thyromegaly or masses palpated, and no cervical lymphadenopathy. Supple, full range of motion without nuchal rigidity, or vertebral point tenderness. No Meningismus. Cardiovascular: Regular rate and rhythm with a normal S1 and S2. No gallops, murmurs, or rubs. Normal PMI, no JVD. No pulse deficits. Respiratory: Lungs have equal breath sounds bilaterally, clear to auscultation and percussion. No rales, rhonchi or wheezes noted. No increased work of breathing, no retractions or nasal flaring. Back: No spinal tenderness. No costovertebral tenderness. Full range of motion. Skin: Warm, dry with normal turgor. Normal color with no rashes, no lesions, and no evidence of cellulitis. MS/ Extremity: Pulses equal, no cyanosis. Neurovascular intact. Full, normal range of motion. Neuro: Awake and alert, GCS 15, oriented to person, place, time, and situation. Cranial nerves II-XII grossly intact. Motor strength 5/5 in all extremities. Sensory grossly intact. Cerebellar exam normal. Normal gait. 07:54 Abdomen/GI: Inspection: abdomen appears normal, Bowel sounds: active, all quadrants, Palpation: soft, in all quadrants, moderate abdominal tenderness, in the left lower quadrant, mass, is not appreciated, rebound tenderness, is not appreciated, voluntary guarding, is not appreciated, involuntary guarding, is not appreciated, no appreciated organomegaly, Indicators: McBurney's point is not tender, Herr's sign is negative, Rovsing's sign is negative, Liver: tenderness, is not appreciated. Vital Signs: 07:53 BP 107 / 63; Pulse 66; Resp 16 S; Pulse Ox 99% on R/A; Weight 77.11 kg (R); Height 5 7 ft. 2 in. (157.48 cm) (R); Pain 8/10; 09:00 BP 101 / 63; Pulse 65; Resp 16 S; Pulse Ox 99% on R/A; Pain 4/10; jl7 09:46 BP 106 / 67; Pulse 64; Resp 16 S; Pulse Ox 99% on R/A; Pain 2/10; jl7 07:53 Body Mass Index 31.09 (77.11 kg, 157.48 cm) 7 MDM: 07:49 Patient medically screened. jr8 09:23 Differential diagnosis: bowel obstruction, diverticulitis, non-specific abd pain, jr8 Ovarian Torsion, Pelvic Inflammatory Disease, Pyelonephritis, Tubal Ovarian Abcess, Ureterolithiasis, urinary tract infection. Data reviewed: vital signs, nurses notes, lab test result(s), radiologic studies, CT scan, and as a result, I will discharge patient. Data interpreted: Pulse oximetry: on room air is 99 %. Interpretation: acceptable. Counseling: I had a detailed discussion with the patient and/or guardian regarding: the historical points, exam findings, and any diagnostic results supporting the discharge/admit diagnosis, lab results, radiology results, the need for outpatient follow up, a family practitioner, a customs officer, to return to the emergency department if symptoms worsen or persist or if there are any questions or concerns that arise at home. Response to treatment: the patient's symptoms have markedly improved after treatment. ED course: CT shows diverticulitis without abscess. No elevation in WBC. Rest of labs unremarkable. Pain in control. V/S stable. Will send home with close return precautions. Patient good with this plan . 10/28 07:57 Order name: Basic Metabolic Panel; Complete Time: 08:44 10/28 07:57 Order name: CBC with Diff; Complete Time: 08:44 10/28 07:57 Order name: Creatinine for Radiology; Complete Time: 08:44 10/28 07:57 Order name: Hepatic Function; Complete Time: 08:44 10/28 08:17 Order name: Urine Dipstick--Ancillary (enter results) eb 10/28 08:17 Order name: Urine --Ancillary (enter results) 10/28 07:57 Order name: IV Saline Lock; Complete Time: 08:17 10/28 07:57 Order name: Labs collected and sent; Complete Time: 08:17 10/28 07:57 Order name: CT Abd/Pelvis - W/Contrast; Complete Time: 09:16 10/28 07:57 Order name: Urine Test (obtain specimen); Complete Time: 08:06 10/28 07:57 Order name: Urine Dipstick-Ancillary (obtain specimen); Complete Time: 08:07 Administered Medications: 08:08 Drug: Zofran 4 mg Route: IVP; Site: right antecubital; jl7 09:00 Follow up: Response: No adverse reaction jl7 08:10 Drug: morphine 4 mg Route: IVP; Site: right antecubital; jl7 09:00 Follow up: Response: No adverse reaction; Pain is decreased jl7 09:30 Drug: Cipro 500 mg Route: PO; jl7 09:46 Follow up: Response: Medication administered at discharge. jl7 09:30 Drug: Flagyl 500 mg Route: PO; jl7 09:46 Follow up: Response: Medication administered at discharge. jl7 09:32 Drug: morphine 4 mg Route: IVP; Site: right antecubital; jl7 09:47 Follow up: Response: No adverse reaction; Pain is decreased jl7 Disposition: 10/28/18 09:25 Discharged to Home. Impression: Diverticulitis of large intestine without perforation or abscess without bleeding. - Condition is Stable. - Discharge Instructions: Diverticulitis. - Prescriptions for Cipro 500 mg Oral Tablet - take 1 tablet by ORAL route every 12 hours for 10 days; 20 tablet. Flagyl 500 mg Oral Tablet - take 1 tablet by ORAL route every 6 hours for 10 days; 40 tablet. Tylenol- Codeine #3 300-30 mg Oral Tablet - take 2 tablets by ORAL route every 6 hours As needed; 20 tablet. Zofran 4 mg Oral Tablet - take 1 tablet by ORAL route every 12 hours As needed; 20 tablet. - Medication Reconciliation Form, Thank You Letter, Antibiotic Education, Prescription Opioid Use form. - Follow up: Private Physician; When: 2 - 3 days; Reason: Recheck today's complaints, Continuance of care, Re-evaluation by your physician. - Problem is new. - Symptoms have improved. Signatures: Dispatcher [employer] EDMS Viet Beach PA PA jr8 Pooja White RN RN jl7 Corrections: (The following items were deleted from the chart) 09:48 09:25 10/28/2018 09:25 Discharged to Home. Impression: Diverticulitis of large jl7 intestine without perforation or abscess without bleeding. Condition is Stable. Forms are Medication Reconciliation Form, Thank You Letter, Antibiotic Education, Prescription Opioid Use. Follow up: Private Physician; When: 2 - 3 days; Reason: Recheck today's complaints, Continuance of care, Re-evaluation by your physician. Problem is new. Symptoms have improved. jr8
[2018-10-28] MEDS ORDERED: CIPROFLOXACIN HCL 500 MG TAB ONE (09:38)
[2018-10-28] MEDS ORDERED: metroNIDAZOLE 500 MG TABLET ONE (09:39)
[2018-10-28 10:48] LABS: Urine Blood 1+ (NEG); Urine Glucose NEGATIVE (NEG); Urine Protein NEGATIVE (NEG); Urine pH 5.5 (5.0-7.0)
== END 2018-10-28 09:48 | disposition home or self-care (01) ==
LOC: ER 07:38
DX: K57.32 Diverticulitis of large intestine without perforation or abscess without bleeding (principal); F17.210 Nicotine dependence, cigarettes, uncomplicated
CPT/HCPCS: 36415; 74177; 80048; 80076; 81003; 81025; 85025; 96374; 96375; 99284; J2405; Q9967

== ENCOUNTER 2019-01-10 20:38 | Inpatient (IN) | payer OTHER ==
--- OUTSIDE RECORDS SUMMARY | 2019-01-10 20:40 | XMS REPORT ---
:1990 Author Organization eClinicalWorks Care Team Providers Name Role Phone Gina Prater Provider Role Unavailable Allergies No Known Allergies Problems Problem Type Condition Code Onset Dates Condition Status Problem Calcaneal spur of left foot M77.32 Active Problem Seasonal and perennial allergic J30.9 Active rhinitis Problem Diverticula of colon K57.30 Active Assessment Left lower quadrant pain R10.32 Active Problem Diarrhea, unspecified type R19.7 Active Problem Cigarette nicotine dependence F17.210 Active without complication Problem Left lower quadrant pain R10.32 Active Problem Depression with anxiety F41.8 Active Problem Sinus problem J34.9 Active Problem Anxiety F41.9 Active Problem Diverticular disease K57.90 Active Medications No Known Medications Results No Known Results Summary Purpose eClinicalWorks Submission
--- OUTSIDE RECORDS SUMMARY | 2019-01-10 20:40 | XMS REPORT ---
[...] Problem Diverticula of colon K57.30 Active Assessment Diarrhea, unspecified type R19.7 Active Assessment Left lower quadrant pain R10.32 Active Problem Diarrhea, unspecified type R19.7 Active Problem Cigarette nicotine dependence F17.210 Active without complication Problem Left lower quadrant pain R10.32 Active Problem Depression with anxiety F41.8 Active Problem Sinus problem J34.9 Active Problem Anxiety F41.9 Active Problem Diverticular disease K57.90 Active Medications Medication Code Code Instructions Start End Status Dosage System Date Date Etodolac [facility] 84256716596 300 MG Orally Jul 13, Active 1 capsule Twice a day 2017 with food BuPROPion HCl ND 60144288775 150 MG Orally Sep 14, Active 1 tablet ER (Smoking Once a day 2019 in the Det) morning Clonazepam ND 64179307793 0.5 MG Orally Active 1 tablet PRN for anxiety at bedtime ProAir HFA [facility] 01432551435 108 (90 Base) Sep 24, Active 2 puffs as MCG/ACT 2018 needed Inhalation every 6 hrs Results Name Result Date Reference Range Unit Abnormality Flag URINALYSIS AUTO W/O SCOPE (29938) ----NIT neg 20181027 ----URO 0.2 20181027 ----PROTEIN Neg 20181027 ----pH 7.0 20181027 ----BLO Neg 20181027 ----GLUCOSE Neg 20181027 ----LIBERTAD Neg 20181027 ----BILIRUBIN Neg 20181027 ----KETONES Neg 20181027 ----SPECIFIC GRAVITY <=1.005 20181027 Abdomen 1 View (KUB) Summary Purpose eClinicalWorks Submission
--- OUTSIDE RECORDS SUMMARY | 2019-01-10 20:40 | XMS REPORT ---
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 Assessment Mild intermittent reactive airway J45.20 Active disease without complication Assessment Viral upper respiratory tract J06.9 Active infection Problem Calcaneal spur of left foot M77.32 Active Problem Left lower quadrant pain R10.32 Active Problem Diarrhea, unspecified type R19.7 Active Problem Mild intermittent reactive airway J45.20 Active disease without complication Problem Diverticular disease K57.90 Active Problem Depression with anxiety F41.8 Active Problem Cigarette nicotine dependence F17.210 Active without complication Problem Anxiety F41.9 Active Medications Medication Code Code Instructions Start End Date Status Dosage System Date Fluticasone [facility] 53865163598 50 MCG/ACT December Active 1 spray in Propionate Nasally Once a 2018 each day nostril RyVent ND 10799933667 6 MG Orally December Active 1 tablet on Three times a 2018 an empty day stomach as needed ProAir HFA [facility] 61704122046 108 (90 Base) Sep 24, Active 2 puffs as MCG/ACT 2017 needed Inhalation every 6 hrs Etodolac ND 74314626667 300 MG Orally Jul 13, Active 1 capsule Twice a day 2017 with food Clonazepam ND 06177988272 0.5 MG Orally Active 1 tablet at PRN for anxiety bedtime BuPROPion HCl ND 84587569669 150 MG Orally Sep 14, Active 1 tablet in ER (Smoking Once a day 2019 the morning Det) ProAir HFA ND 38469811717 108 (90 Base) December Active as directed MCG/ACT 2018 Inhalation q 4hrs prn Results No Known Results Summary Purpose eClinicalWorks Submission
--- OUTSIDE RECORDS SUMMARY | 2019-01-10 20:40 | XMS REPORT ---
[...] End Status Dosage System Date Date Etodolac [facility] 38327682855 300 MG Orally Jul 13, Active 1 capsule Twice a day 2018 with food Clonazepam [facility] 48760654117 0.5 MG Orally Active 1 tablet PRN for anxiety at bedtime ProAir HFA [facility] 80708509115 108 (90 Base) Sep 24, Active 2 puffs as MCG/ACT 2018 needed Inhalation every 6 hrs Amoxicillin ND 11964219238 875 MG Orally Sep 14, Sep 21, Active 1 capsule Twice a day 2018 2019 BuPROPion HCl ND 13095939067 150 MG Orally Sep 14, Active 1 tablet ER (Smoking Once a day 2019 in the Det) morning Results No Known Results Summary Purpose eClinicalWorks Submission
[2019-01-10] MEDS ORDERED: NA CHLORIDE 0.9% 2,000 ML ONE (21:45)
[2019-01-10] MEDS ORDERED: ONDANSETRON 4 MG/2 ML VIAL ONE (21:45)
[2019-01-10] MEDS ORDERED: MORPHINE 4 MG/ML SYR ONE (21:45)
[2019-01-10 21:53] LABS: Absolute Lymphocytes (CBC) 2.3 K/uL (0.7-4.9); Absolute Monocytes 1.2 K/uL (0.1-1.3); Absolute Neutrophil 22.1 K/uL (1.8-8.0); Basophils % 0.5 % (0-1.3); Eosinophils % 0.5 % (0-4.4); Hematocrit 40.6 % (36.0-45.0); Lymphocytes % 8.7 % (15.3-44.8); MPV 8.3 fL (7.6-11.3); Monocytes % 4.7 % (3.3-12.3); RBC Red Blood Cell Count 4.46 M/uL (3.86-4.86)
[2019-01-10 22:22] LABS: ALT/SGPT 22 U/L (12-78); AST/SGOT 17 U/L (15-37); Albumin 3.8 g/dL (3.4-5.0); Alkaline Phosphatase 98 U/L (45-117); BUN Blood Urea Nitrogen 8 mg/dL (7-18); Bicarbonate 22 mmol/L (21-32); Bilirubin Direct < 0.1 mg/dL (0-0.2); Bilirubin Total 0.4 mg/dL (0.2-1.0); Glucose Level 105 mg/dL (74-106); Lipase 137 U/L (73-393); Potassium 3.8 mmol/L (3.5-5.1); Protein, Total 7.2 g/dL (6.4-8.2); Sodium Level 139 mmol/L (136-145)
[2019-01-10 22:42] LABS: Blood Morphology Comment NOT SEEN (NOT SEEN); Platelet Estimate ADEQ
[2019-01-10] MEDS ORDERED: MEPERIDINE HCL 50 MG/ML AMP ONE (22:49)
--- NOTE | 2019-01-11 01:39 | EDPHYS ---
Physician Documentation [facility] Name: Fawn Larson Age: 28 yrs Sex: Female : 1990 Arrival Date: 01/10/2019 Time: 20:45 Bed 5 Private MD: ED Physician HPI: 01/10 21:18 This 28 yrs old Female presents to ER via Ambulatory with complaints of pkl Abdominal Pain, Back Pain. 21:18 The patient presents with abdominal pain in the left lower quadrant. Onset: The pkl symptoms/episode began/occurred just prior to arrival, 5 hour(s) ago. The symptoms do not radiate. Associated signs and symptoms: none. The patient has experienced similar episodes in the past, a few times. Patient said she has H/O diverticulitis. Last episode was 3 months ago. 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 - Social history:: Smoking status: Patient uses tobacco products, smokes one-half pack cigarettes per day. - Ebola Screening: : No symptoms or risks identified at this time. ROS: 21:18 Eyes: Negative for injury, pain, redness, and discharge, ENT: Negative for injury, pkl pain, and discharge, Neck: Negative for injury, pain, and swelling, Cardiovascular: Negative for chest pain, palpitations, and edema, Respiratory: Negative for shortness of breath, cough, wheezing, and pleuritic chest pain. 21:18 Abdomen/GI: Positive for abdominal pain, of the left lower quadrant. 21:18 Back: Negative for acute changes. 21:18 : Negative for urinary symptoms. 21:18 MS/extremity: Negative for acute changes. 21:18 Skin: Negative for rash. 21:18 Neuro: Negative for altered mental status. Exam: 21:18 Head/Face: Normocephalic, atraumatic. Eyes: Pupils equal round and reactive to light, pkl extra-ocular motions intact. Lids and lashes normal. Conjunctiva and sclera are non-icteric and not injected. Cornea within normal limits. Periorbital areas with no swelling, redness, or edema. ENT: Nares patent. No nasal discharge, no septal abnormalities noted. Tympanic membranes are normal and external auditory canals are clear. Oropharynx with no redness, swelling, or masses, exudates, or evidence of obstruction, uvula midline. Mucous membranes moist. Neck: Trachea midline, no thyromegaly or masses palpated, and no cervical lymphadenopathy. Supple, full range of motion without nuchal rigidity, or vertebral point tenderness. No Meningismus. Chest/axilla: Normal chest wall appearance and motion. Nontender with no deformity. No lesions are appreciated. Cardiovascular: Regular rate and rhythm with a normal S1 and S2. No gallops, murmurs, or rubs. Normal PMI, no JVD. No pulse deficits. Respiratory: Lungs have equal breath sounds bilaterally, clear to auscultation and percussion. No rales, rhonchi or wheezes noted. No increased work of breathing, no retractions or nasal flaring. 21:18 Abdomen/GI: Bowel sounds: normal, Palpation: soft, moderate abdominal tenderness, in the left lower quadrant. 21:18 Back: Exam negative for acute changes. 21:18 : Exam negative for acute changes. 21:18 Musculoskeletal/extremity: Exam is negative for acute changes. 21:18 Skin: Exam negative for rash. 21:18 Neuro: Orientation: is normal, Mentation: is normal, Cranial nerves: grossly normal, Motor: is normal. Vital Signs: 20:52 BP 124 / 79; Pulse 127; Resp 20; Temp 98.4; Pulse Ox 99% on R/A; Weight 78.47 kg; aa1 Height 5 ft. 2 in. (157.48 cm); Pain 10/10; 21:41 BP 106 / 66; Pulse 85; Resp 18; Pulse Ox 100% on R/A; ea 22:00 BP 120 / 82; Pulse 94; Resp 18; Pulse Ox 100% ; ea 23:30 BP 108 / 62; Pulse 73; Resp 18; Pulse Ox 98% on R/A; ea 0507 00:47 BP 103 / 59; Pulse 79; Resp 19; Pulse Ox 98% ; ea 01:00 BP 99 / 61; Pulse 70; Resp 18; Pulse Ox 98% ; ea 02:00 BP 112 / 66; Pulse 70; Resp 18; Pulse Ox 99% on R/A; ea 03:49 BP 100 / 54; Pulse 68; Resp 18; Temp 98.2; Pulse Ox 99% on R/A; ea 04:10 BP 112 / 60; Pulse 60; Resp 18; Pulse Ox 98% on R/A; ea 01/10 20:52 Body Mass Index 31.64 (78.47 kg, 157.48 cm) aa1 MDM: 01/10 21:11 Patient medically screened. pkl 01/11 01:36 Data reviewed: vital signs, nurses notes, lab test result(s), radiologic studies, CT pkl scan. 01:39 ED course: Talked to Dr. Manzanares. NPO. Admit to Hospitalist.. pkl 01/10 21:18 Order name: Basic Metabolic Panel; Complete Time: 00:25 pkl 01/10 21:18 Order name: CBC with Diff; Complete Time: 00:25 pkl 01/10 21:18 Order name: Creatinine for Radiology; Complete Time: 00:25 pkl 01/10 21:18 Order name: Hepatic Function; Complete Time: 00:25 pkl 01/10 21:18 Order name: Lipase; Complete Time: 00:25 pkl 01/10 22:07 Order name: Manual Differential; Complete Time: 00:25 EDMS 01/10 21:18 Order name: CT Abd/Pelvis - W/Contrast pkl 01/11 02:37 Order name: Protime (+INR) EDMS 01/11 02:37 Order name: PTT, Activated Partial Thromb EDMS 01/11 02:37 Order name: CBC with Automated Diff EDMS 01/10 21:18 Order name: IV Saline Lock; Complete Time: 21:44 pkl 01/10 21:18 Order name: Labs collected and sent; Complete Time: 21:44 pkl 01/11 02:37 Order name: CONS Physician Consult EDMS 01/11 02:37 Order name: CONS Pharmacy Consult EDMS 01/11 02:37 Order name: NPO EDMS Administered Medications: 01/10 21:30 Drug: Zofran 4 mg Route: IVP; Site: right antecubital; ea 22:00 Follow up: Response: No adverse reaction; Marked relief of symptoms ea 01/11 00:00 Follow up: Response: No adverse reaction; Marked relief of symptoms ea 01/10 21:32 Drug: morphine 4 mg Route: IVP; Site: right antecubital; ea 22:00 Follow up: Response: No adverse reaction; Pain is decreased ea 01/11 00:00 Follow up: Response: No adverse reaction; Pain is decreased ea 01/10 21:35 Drug: NS 0.9% 1000 ml Route: IV; Rate: 1000 ml; Site: right antecubital; ea 01/11 01:00 Follow up: Response: No adverse reaction; IV Status: Completed infusion; IV Intake: ea 1000ml 01/10 21:35 Drug: NS 0.9% 1000 ml Route: IV; Rate: 125 ml/hr; Site: right antecubital; ea 01/11 03:52 Follow up: Response: No adverse reaction; IV Status: Completed infusion; IV Intake: ea 1000ml 01/10 22:40 Drug: Demerol 50 mg Route: IVP; Site: right antecubital; ea 23:10 Follow up: Response: No adverse reaction; Pain is decreased ea 01/11 01:55 Drug: Flagyl 500 mg Volume: 100 ml; Route: IVPB; Rate: 200 ml/hr; Infused Over: 30 ea mins; Site: right antecubital; 03:02 Follow up: IV Status: Completed infusion; IV Intake: 100ml lp1 03:36 Drug: LevaQUIN 500 mg Volume: 100 ml; Route: IVPB; Infused Over: 60 mins; Site: right ea antecubital; 04:18 Follow up: IV Status: Infusion continued upon admission ea 03:36 Drug: Dilaudid 1 mg Route: IVP; Site: right antecubital; ea 04:00 Follow up: Response: No adverse reaction; Pain is decreased ea 04:00 Drug: Zofran 4 mg Route: IVP; Site: right antecubital; ea 04:00 Follow up: Response: No adverse reaction ea Disposition: 01/11/19 01:38 Hospitalization ordered by Latonya Haji for Inpatient Admission. Preliminary diagnosis is Acute sigmoid diverticulitis with suggestion of developing phlegmon. - Bed requested for Telemetry/MedSurg (Inpatient). - Status is Inpatient Admission. ea - Condition is Stable. - Problem is new. - Symptoms are unchanged. UTI on Admission? No Signatures: Dispatcher [employer] EDMS Mireya Hazel RN RN aa1 Matthew Guerin MD MD pkl Leticia Joel RN RN cg Deborah Mora RN RN ea Gabbi Galvez RN lp1 Corrections: (The following items were deleted from the chart) 03:01 01:38 Hospitalization Ordered by Latonya Haji MD for Inpatient Admission. Preliminary cg diagnosis is Acute sigmoid diverticulitis with suggestion of developing phlegmon. Bed requested for Telemetry/MedSurg (Inpatient). Status is Inpatient Admission. Condition is Stable. Problem is new. Symptoms are unchanged. UTI on Admission? No. pkl 04:18 03:01 01/11/2019 01:38 Hospitalization Ordered by Latonya Haji MD for Inpatient ea Admission. Preliminary diagnosis is Acute sigmoid diverticulitis with suggestion of developing phlegmon. Bed requested for Telemetry/MedSurg (Inpatient). Status is Inpatient Admission. Condition is Stable. Problem is new. Symptoms are unchanged. UTI on Admission? No. cg 07:39 04:18 01/11/2019 01:38 Hospitalization Ordered by Latonya Haji MD for Inpatient ea Admission. Preliminary diagnosis is Acute sigmoid diverticulitis with suggestion of developing phlegmon. Bed requested for Telemetry/MedSurg (Inpatient). Status is Inpatient Admission. Condition is Stable. Problem is new. Symptoms are unchanged. UTI on Admission? No. ea
--- NOTE | 2019-01-11 01:39 | ER ---
Nurse's Notes [facility] Name: Fawn Larson Age: 28 yrs Sex: Female : 1990 Arrival Date: 01/10/2019 Time: 20:45 Bed 5 Private MD: Diagnosis: Acute sigmoid diverticulitis with suggestion of developing phlegmon Presentation: 01/10 20:50 Presenting complaint: Patient states: LLQ pain that wraps around to L low back that aa1 started around 1600 this evening and has been getting more and more severe. Reports hx of diverticulitis and states her symptoms feel the same. Transition of care: patient was not received from another setting of care. Onset of symptoms was January 10, 2019 at 16:00. Risk Assessment: Do you want to hurt yourself or someone else? Patient reports no desire to harm self or others. Initial Sepsis Screen: Does the patient meet any 2 criteria? HR > 90 bpm. No. Patient's initial sepsis screen is negative. Does the patient have a suspected source of infection? Yes: Acute abdominal pain. Care prior to arrival: None. 20:50 Method Of Arrival: Ambulatory aa1 20:50 Acuity: MCKENNA 3 aa1 Triage Assessment: 20:52 General: Appears in no apparent distress. uncomfortable, Behavior is calm, cooperative, aa1 appropriate for age. 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 - Social history:: Smoking status: Patient uses tobacco products, smokes one-half pack cigarettes per day. - Ebola Screening: : No symptoms or risks identified at this time. Screenin:15 Abuse screen: Denies threats or abuse. Nutritional screening: No deficits noted. ea Tuberculosis screening: No symptoms or risk factors identified. Fall Risk None identified. Assessment: 21:15 General: Appears uncomfortable, Behavior is calm, cooperative, appropriate for age. ea Pain: Complains of pain in left lower quadrant Pain radiates to back Pain currently is 10 out of 10 on a pain scale. Quality of pain is described as aching, Is continuous. Neuro: Level of Consciousness is awake, alert, obeys commands, Oriented to person, place, time, situation. Cardiovascular: Patient's skin is warm and dry. Respiratory: Airway is patent Respiratory effort is even, unlabored, Respiratory pattern is regular, symmetrical. GI: Abdomen is non-distended, Bowel sounds present X 4 quads. Abd is soft and non tender X 4 quads. Derm: Skin is pink, warm \T\ dry. 22:30 Reassessment: Patient and/or family updated on plan of care and expected duration. Pain ea level reassessed. Patient is alert, oriented x 3, equal unlabored respirations, skin warm/dry/pink. 01/11 00:47 Reassessment: Patient and/or family updated on plan of care and expected duration. Pain ea level reassessed. Patient is alert, oriented x 3, equal unlabored respirations, skin warm/dry/pink. Awaiting on CT results. 01:31 Reassessment: Patient and/or family updated on plan of care and expected duration. Pain ea level reassessed. Patient is alert, oriented x 3, equal unlabored respirations, skin warm/dry/pink. awaiting on CT results. 03:09 Reassessment: Patient and/or family updated on plan of care and expected duration. Pain ea level reassessed. Dr. Talley at bedside updating pt on plan of care, verbal orders obtained for Dilaudid 1 mg x 1 if pain does not subside, if BP low give 1 L bolus before giving dilaudid and then give if BP has improved. 03:37 Reassessment: Patient and/or family updated on plan of care and expected duration. Pain ea level reassessed. Patient is alert, oriented x 3, equal unlabored respirations, skin warm/dry/pink. Pt complaining of pain, BP: 114/ 58 Dilaudid 1 mg administered in 20 G in RAC. 03:51 Reassessment: Report called to second floor to Delilah PROCTOR. ea 04:00 Reassessment: Patient and/or family updated on plan of care and expected duration. Pain ea level reassessed. Patient is alert, oriented x 3, equal unlabored respirations, skin warm/dry/pink. Pt vomited x 1. Dr. Haji notified, order obtained for Zofran 4 mg IVP x 1 now. , medication administered, pt tolerated well. 04:12 Reassessment: Patient and/or family updated on plan of care and expected duration. Pain ea level reassessed. Patient is alert, oriented x 3, equal unlabored respirations, skin warm/dry/pink. Pt admitted to second floor, pt taken via wheelchair per tech, tolerating well. Vital Signs: 01/10 20:52 BP 124 / 79; Pulse 127; Resp 20; Temp 98.4; Pulse Ox 99% on R/A; Weight 78.47 kg; aa1 Height 5 ft. 2 in. (157.48 cm); Pain 10/10; 21:41 BP 106 / 66; Pulse 85; Resp 18; Pulse Ox 100% on R/A; ea 22:00 BP 120 / 82; Pulse 94; Resp 18; Pulse Ox 100% ; ea 23:30 BP 108 / 62; Pulse 73; Resp 18; Pulse Ox 98% on R/A; ea 01/11 00:47 BP 103 / 59; Pulse 79; Resp 19; Pulse Ox 98% ; ea 01:00 BP 99 / 61; Pulse 70; Resp 18; Pulse Ox 98% ; ea 02:00 BP 112 / 66; Pulse 70; Resp 18; Pulse Ox 99% on R/A; ea 03:49 BP 100 / 54; Pulse 68; Resp 18; Temp 98.2; Pulse Ox 99% on R/A; ea 04:10 BP 112 / 60; Pulse 60; Resp 18; Pulse Ox 98% on R/A; ea 01/10 20:52 Body Mass Index 31.64 (78.47 kg, 157.48 cm) aa1 ED Course: 01/10 20:45 Patient arrived in ED. mr 20:51 Triage completed. aa1 20:52 Arm band placed on right wrist. aa1 20:54 Deborah Mora, HITESH is Primary Nurse. ea 21:11 Matthew Guerin MD is Attending Physician. pkl 21:30 Inserted saline lock: 20 gauge in right antecubital area, using aseptic technique. ea Blood collected. 22:30 Patient has correct armband on for positive identification. Bed in low position. Call ea light in reach. Side rails up X2. 23:30 Radiology exam delayed due to test not completed at this time. eh 01/11 00:[address] via wheelchair. 00:31 CT completed. Patient tolerated procedure well. Patient moved back from CT. 00:35 CT Abd/Pelvis - W/Contrast In Process Unspecified. EDMS 01:37 Latonya Haji MD is Hospitalizing Provider. pkl 03:36 No provider procedures requiring assistance completed. Patient admitted, IV remains in ea place. 07:36 Attending Physician role handed off by Matthew Guerin MD 07:36 Primary Nurse role handed off by Deborah Mora RN 07:37 [facility]C [facility] kb 07:37 Markos Bobby MD is Attending Physician. kb Administered Medications: 01/10 21:30 Drug: Zofran 4 mg Route: IVP; Site: right antecubital; ea 22:00 Follow up: Response: No adverse reaction; Marked relief of symptoms 01/11 00:00 Follow up: Response: No adverse reaction; Marked relief of symptoms 01/10 21:32 Drug: morphine 4 mg Route: IVP; Site: right antecubital; ea 22:00 Follow up: Response: No adverse reaction; Pain is decreased ea 01/11 00:00 Follow up: Response: No adverse reaction; Pain is decreased 01/10 21:35 Drug: NS 0.9% 1000 ml Route: IV; Rate: 1000 ml; Site: right antecubital; ea 01/11 01:00 Follow up: Response: No adverse reaction; IV Status: Completed infusion; IV Intake: ea 1000ml 01/10 21:35 Drug: NS 0.9% 1000 ml Route: IV; Rate: 125 ml/hr; Site: right antecubital; ea 01/11 03:52 Follow up: Response: No adverse reaction; IV Status: Completed infusion; IV Intake: ea 1000ml 01/10 22:40 Drug: Demerol 50 mg Route: IVP; Site: right antecubital; ea 23:10 Follow up: Response: No adverse reaction; Pain is decreased 01/11 01:55 Drug: Flagyl 500 mg Volume: 100 ml; Route: IVPB; Rate: 200 ml/hr; Infused Over: 30 ea mins; Site: right antecubital; 03:02 Follow up: IV Status: Completed infusion; IV Intake: 100ml lp1 03:36 Drug: LevaQUIN 500 mg Volume: 100 ml; Route: IVPB; Infused Over: 60 mins; Site: right ea antecubital; 04:18 Follow up: IV Status: Infusion continued upon admission ea 03:36 Drug: Dilaudid 1 mg Route: IVP; Site: right antecubital; ea 04:00 Follow up: Response: No adverse reaction; Pain is decreased ea 04:00 Drug: Zofran 4 mg Route: IVP; Site: right antecubital; ea 04:00 Follow up: Response: No adverse reaction ea Intake: 01:00 IV: 1000ml; Total: 1000ml. ea 03:02 IV: 100ml; Total: 1100ml. lp1 03:52 IV: 1000ml; Total: 2100ml. ea Outcome: 01:38 Decision to Hospitalize by Provider. pkl 03:38 Instructed on the need for admit. ea 04:12 Admitted to Med/surg accompanied by tech, room 211, Report called to Delilah PROCTOR ea 04:12 Condition: stable 04:18 Patient left the ED. ea Signatures: Dispatcher [employer] EDMS Elizabeth Araiza, KENAN-C CUSTOM PROTECTION OFFICER-CkMireya Estrada RN RN aa1 Matthew Guerin MD MD pkl Tobar Angeline mr HaNathaniel Laura, RN RN lp1 Deborah Mora RN RN ea Corrections: (The following items were deleted from the chart) 04:17 04:15 BP 112 / 60; Pulse 60bpm; Resp 18bpm; Pulse Ox 98% RA; ea ea 07:42 07:39 Patient left the ED. ea ea
[2019-01-11] MEDS ORDERED: METRONIDAZOLE 500mg IVPB 500 MG/100 ML BAG IV ONE (02:05)
[2019-01-11] MEDS ORDERED: Levofloxacin500mg IV 500 MG/100 ML BAG IV ONE (02:05)
[2019-01-11] MEDS ORDERED: ACETAMINOPHEN 500 MG TAB PO PRN (02:32)
[2019-01-11] MEDS ORDERED: MORPHINE 4 MG/ML SYR IV PRN (02:32)
[2019-01-11] MEDS ORDERED: Levofloxacin 750mg IV 750 MG/150 ML BAG IV SCH (03:00)
[2019-01-11] MEDS ORDERED: ONDANSETRON 4 MG/2 ML VIAL ONE ×2 (03:14→04:19)
[2019-01-11] MEDS ORDERED: MORPHINE 4 MG/ML SYR ONE (03:14)
[2019-01-11] MEDS ORDERED: HYDROMORPHONE HCL 1 MG/ML INJ ONE (03:43)
[2019-01-11] MEDS ORDERED: METRONIDAZOLE 500mg IVPB 500 MG/100 ML BAG IV SCH (06:00)
[2019-01-11] MEDS: ONDANSETRON 4 MG/2 ML VIAL IV PRN ×2 (06:54→11:25)
[2019-01-11] MEDS: HYDROMORPHONE HCL 1 MG/ML INJ IV PRN ×4 (06:54→21:05)
[2019-01-11 06:59] LABS: Absolute Lymphocytes (CBC) 1.8 K/uL (0.7-4.9); Absolute Monocytes 1.1 K/uL (0.1-1.3); Absolute Neutrophil 15.8 K/uL (1.8-8.0); Basophils % 0.3 % (0-1.3); Eosinophils % 0.7 % (0-4.4); Hematocrit 35.6 % (36.0-45.0); Lymphocytes % 9.5 % (15.3-44.8); Monocytes % 5.7 % (3.3-12.3); RBC Red Blood Cell Count 3.81 M/uL (3.86-4.86)
[2019-01-11 07:05] LABS: ALT/SGPT 20 U/L (12-78); AST/SGOT 11 U/L (15-37); Albumin 3.1 g/dL (3.4-5.0); Alkaline Phosphatase 84 U/L (45-117); BUN Blood Urea Nitrogen 6 mg/dL (7-18); Bicarbonate 26 mmol/L (21-32); Bilirubin Total 0.6 mg/dL (0.2-1.0); Glucose Level 104 mg/dL (74-106); Magnesium 1.7 mg/dL (1.8-2.4); Protein, Total 6.2 g/dL (6.4-8.2); Sodium Level 142 mmol/L (136-145)
[2019-01-11 07:11] LABS: Protime INR 1.12
[2019-01-11 07:28] LABS: Urine Appearance CLEAR; Urine Bilirubin NEGATIVE (NEG); Urine Blood NEGATIVE (NEG); Urine Color YELLOW; Urine Glucose NEGATIVE (NEG); Urine Protein NEGATIVE (NEG); Urine Specific Gravity >=1.030 (1.005-1.030); Urine Urobilinogen 0.2 mg/dL (0.2-1.0)
[2019-01-11 07:32] LABS: Urine Microscopic Reflex NO UMIC
--- NOTE | 2019-01-11 08:08 | P.HP ---
Certification for Inpatient Patient admitted to: Inpatient With expected LOS: >2 Midnights Patient will require the following post-hospital care: None Practitioner: I am a practitioner with admitting privileges, knowledge of patient current condition, hospital course, and medical plan of care. Services: Services provided to patient in accordance with Admission requirements found in Title 42 Section 412.3 of the Code of Federal Regulations Patient History Date of Service: 01/11/19 Reason for admission: Abdominal pain History of Present Illness: Patient is a 28-year-old female presented to the emergency room with severe abdominal pain. The pain was mainly in the left lower quadrant. She said it was a 10/10. This happened suddenly and she has never experienced any pain similar to this. In the emergency room, she was given morphine but had no relief. She was ambulating around the bed crying in tears and leaned over. She said the pain was excruciating and the pain medicine was not helping. Her CT report showed sigmoid diverticulitis with a phlegmonous collection. The emergency room physician spoke with surgeon on-call and decision was made to admit the patient to the hospital and get her started on IV antibiotics. They would assess this a.m.. Otherwise, patient has had some weight loss but has never been told she had has any kind of inflammatory bowel disease. She has no family members that have any bowel issues. She has never been told that she has diverticulum so. At this time, she will be admitted for further treatment. 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 moist/pink, EOMI, Sclerae nonicteric Neck: Supple, 2+ carotid pulse no bruit, No LAD, Without JVD or thyroid abnormality Respiratory: Clear to auscultation bilaterally, Normal air movement Cardiovascular: Regular rate/rhythm, Normal S1 S2, No murmurs Gastrointestinal: Hypoactive, Soft and benign, Non-distended, Tenderness ( Diffusely), Rebound, Guarding Musculoskeletal: No tenderness Integumentary: No rashes Neurological: Normal gait, Normal speech, Normal strength at 5/5 x4 extr, Normal tone, Sensation intact, Cranial nerves 3-12 intact, Normal affect Lymphatics: No axilla or inguinal lymphadenopathy - Studies Laboratory Data (last 24 hrs) 01/10/19 21:30: Creatinine 0.74 01/10/19 21:30: WBC 25.8 H*, Hgb 14.2, Hct 40.6, Plt Count 368 01/10/19 21:30: Sodium 139, Potassium 3.8, BUN 8, Creatinine 0.77, Glucose 105, Total Bilirubin 0.4, AST 17, ALT 22, Alkaline Phosphatase 98, Lipase 137 Assessment & Plan - Problems (Diagnosis) (1) Abscess of sigmoid colon due to diverticulitis Current Visit: Yes Status: Acute - Plan Plan: 1. IV fluids and IV antibiotics 2. General surgery consultation 3. Pain control 4. Outpatient colonoscopy 5. Repeat abdominal film if pain worsens to rule out perforation 6. GI and DVT prophylaxis Discharge Plan: Home Plan to discharge in: Greater than 2 days - Advance Directives Does patient have a Living Will: No Does patient have a Durable POA for Healthcare: No - Code Status/Comfort Care Code Status Assessed: Yes Code Status: Full Code Critical Care: No Time Spent Managing PTS Care (In Minutes): 45
--- NOTE | 2019-01-11 10:34 | RAD REPORT ---
EXAM DESCRIPTION: CT - Abdomen Pelvis W Contrast - 01/11/2019 2:22 am CLINICAL HISTORY: The patient is 28 years old and is Female; ABD PAIN TECHNIQUE: Axial computed tomography images of the abdomen and pelvis with intravenous contrast. S agittal and coronal reformatted images were created and reviewed. This CT exam was performed using one or more of the following dose reduction techniques: automated exposure control, adjustment of t he mA and/or kV according to patient size, and/or use of iterative reconstruction technique. COMPARISON: CT abdomen and pelvis October 28, 2018. FINDINGS: LUNG BASES: Unremarkable. No mass. No consolidation. ABDOMEN: LIVER: Unremarkable. No mass. GALLBLADDER AND BILE DUCTS: No calcified stones. No ductal dilation. PANCREAS: No ductal dilation. No mass. SPLEEN: Unremarkable. ADRENALS: Unremarkable. No mass. KIDNEYS AND URETERS: Unremarkable. No solid mass. No hydronephrosis. STOMACH AND BOWEL: The stomach is distended with oral contrast. Oral contrast is present through out the majority the small bowel. The small bowel is normal in caliber. Multiple colonic diverticula are noted specifically involving the left colon. Extensive colonic wall thickening with surrounding i nflammation involving the sigmoid colon is present. Focal inflamed diverticula with adjacent 2.0 x 1. 5 cm fluid and air collection is noted. There is no bowel obstruction. PELVIS: APPENDIX: The appendix is normal in caliber without surrounding inflammation. BLADDER: Unremarkable. No mass. REPRODUCTIVE: A 1.5 cm right ovarian cyst is present. No follow-up imaging is recommended. Reference: J Am [place] Radiol 2013;10:675-681 The uterus and left ovary are unremarkable. ABDOMEN and PELVIS: INTRAPERITONEAL SPACE: A small amount of free fluid is present within the pelvis which is likely physiologic. No free air. BONES/JOINTS: No acute fracture. SOFT TISSUES: A small fat-containing umbilical hernia is present. VASCULATURE: Unremarkable. No abdominal aortic aneurysm. LYMPH NODES: Unremarkable. No enlarged lymph nodes. IMPRESSION: Findings consistent with acute sigmoid colon diverticulitis with suggestion of developin g phlegmon. Electronically signed by: Samina Boothe MD 01/11/2019 12:41 AM CDT Due to temporary technical issues with the PACS/Fluency reporting system, reports are being signed by the in house radiologist as a courtesy to ensure prompt reporting. The interpreting radiologist is f ully responsible for the content of the report.
[2019-01-11] MEDS: METRONIDAZOLE 500mg IVPB 500 MG/100 ML BAG IV SCH ×2 (11:25→17:17)
[2019-01-11] MEDS ORDERED: GLUCAGON 1 MG/VIAL IM PRN (12:41)
[2019-01-11] MEDS: Ringers Lactate 1,000 ML IV SCH ×3 (12:52→21:01)
[2019-01-11] MEDS ORDERED: PROMETHAZINE 25 MG/ML VIAL IV ONE (12:54)
[2019-01-11] MEDS: INSULIN -REGULAR HUMAN 50 UNIT/0.5 ML ML SQ SCH ×2 (16:30→20:56)
[2019-01-11] MEDS: PROMETHAZINE 25 MG/ML VIAL IV SCH (17:15)
--- NOTE | 2019-01-11 18:27 | CON ---
Date of Consultation: 01/11/2019 Brief History Of Present Illness: The patient is a 28-year-old female, who has a history o f diverticulitis beginning at the age 21. She has had multiple episodes before. She presents with a bdominal pain beginning approximately 1 day prior with pain predominantly in the left lower quadrant. She has had similar episodes before in the past. Never this intensity. She has no change in bowel or bladder habits. She has had some nausea and vomiting. No sick contacts. No recent travel. Oscar n is described as sharp and stabbing predominantly. Past Medical History: Significant for diverticulitis. 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 Social History: She smokes half a pack of cigarettes per day. She denies alcohol or recreational dr ug use. Family History: Reviewed, noncontributory. Allergies: NO KNOWN DRUG ALLERGIES, BUT SHE IS ALLERGIC TO COCONUT, COLLOIDAL OATMEAL. Medications: At home only include clonazepam for p.r.n. anxiety. Review of Systems: A 10-point review of systems other than HPI denies. Physical Examination: Vital Signs: At the time of my examination, her vital signs were, BMI of 32. Her blood pressure 110 /61, pulse 93, respiratory rate 16, temperature 97.1. General: She is awake, alert, oriented. Psychiatric: appropriate. Conversive. HEENT: She is normocephalic. Sclerae anicteric. Mucous membranes are moist. Oropharynx clear. Neck: Supple. No JVD. Chest: Normal expansion and excursion. Cardiovascular: Regular rate and rhythm. Pulmonary: Clear to auscultation bilaterally. Abdomen: Soft with mild left lower quadrant tenderness to palpation. There is positive focal perito nitis. There is no rebound, no guarding on the remainder of the abdomen with the exception of the le ft lower quadrant, which has mild voluntary guarding. No surgical scars were evident on the abdomen. Extremities: No clubbing, cyanosis, edema. Skin: Warm and dry. Laboratory Data: Reveals white blood count 8.8, down from 25.8 on admission. Hemoglobin 12.2, hemat ocrit of 35.6, platelet count is 314, neutrophils are 83%. Her PT 13.2, INR 1.12, PTT 28.4. Sodium 142, potassium 4.0, chloride 110, carbon dioxide 26, BUN 6, creatinine 0.7, glucose is 104, AST 11, A LT 20, alkaline phosphatase is 84, lipase is 137. Procalcitonin 0.05. Her UA is essentially negativ e. She had a CT scan performed of the abdomen and pelvis, officially read as findings consistent wit h acute sigmoid colonic diverticulitis with specifically multiple colonic diverticula noted specifica lly along the left colon. Extensive colonic wall thickening with surrounding inflammatory involving the sigmoid colon is present. Focal inflamed diverticula with adjacent 2 x 1.5 cm fluid and air maty ection noted. There is no bowel obstruction. Assessment And Plan: This is a 28-year-old female who comes in with signs and symptoms of diverticul itis. 1.IV fluid hydration. 2.Antibiotic coverage. 3.Serial abdominal exams. 4.The patient will need outpatient colonoscopy. I have discussed risks, benefits, alternatives of t he above stated plan. The patient agrees to proceed as indicated. DOMINIQUE/CHARLES Voice ID: [id number] Report ID: [id number]
[2019-01-11] MEDS: ACETAMINOPHEN 325 MG TABLET PO SCH (21:01)
[2019-01-12] MEDS: METRONIDAZOLE 500mg IVPB 500 MG/100 ML BAG IV SCH ×4 (00:30→18:17)
[2019-01-12] MEDS: HYDROMORPHONE HCL 1 MG/ML INJ IV PRN ×5 (02:10→19:32)
[2019-01-12] MEDS: PROMETHAZINE 25 MG/ML VIAL IV SCH ×5 (02:11→18:18)
[2019-01-12] MEDS: Ringers Lactate 1,000 ML IV SCH ×2 (05:00→13:36)
[2019-01-12] MEDS: Levofloxacin 750mg IV 750 MG/150 ML BAG IV SCH (05:46)
[2019-01-12] MEDS: ONDANSETRON 4 MG/2 ML VIAL IV PRN (05:49)
[2019-01-12 06:07] LABS: Absolute Lymphocytes (CBC) 1.9 K/uL (0.7-4.9); Absolute Monocytes 0.9 K/uL (0.1-1.3); Absolute Neutrophil 10.7 K/uL (1.8-8.0); Basophils % 0.2 % (0-1.3); Eosinophils % 1.4 % (0-4.4); Hematocrit 33.5 % (36.0-45.0); Lymphocytes % 13.6 % (15.3-44.8); MPV 8.3 fL (7.6-11.3); Monocytes % 6.9 % (3.3-12.3); RBC Red Blood Cell Count 3.63 M/uL (3.86-4.86)
[2019-01-12 06:13] LABS: BUN Blood Urea Nitrogen 5 mg/dL (7-18); Bicarbonate 28 mmol/L (21-32); Glucose Level 82 mg/dL (74-106); Magnesium 1.6 mg/dL (1.8-2.4); Phosphorus 1.8 mg/dL (2.5-4.9); Potassium 4.1 mmol/L (3.5-5.1); Sodium Level 141 mmol/L (136-145)
[2019-01-12] MEDS ORDERED: MAGNESIUM SULFATE 1 gm IVPB 1 GM/100 ML BAG IV ONE (07:11)
[2019-01-12] MEDS: INSULIN -REGULAR HUMAN 50 UNIT/0.5 ML ML SQ SCH ×4 (07:30→21:00)
[2019-01-12] MEDS ORDERED: POTASS/SODIUM PHOSPHATE 1 PKT POWD.PACK PO ONE (08:00)
[2019-01-12] MEDS: ACETAMINOPHEN 325 MG TABLET PO SCH ×3 (09:00→21:00)
[2019-01-12] MEDS ORDERED: POTASSIUM PHOS IN 0.9 % NACL 15 MMOL/250 ML BAG IV ONE (09:00)
--- NOTE | 2019-01-12 09:10 | P.PN ---
Subjective Date of Service: 01/12/19 Chief Complaint: Abdominal pain Subjective: Worsening (states dilaudid only last 2 hours. Pain is 8/10 before shot. 2/10 after) Review of Systems 10-point ROS is otherwise unremarkable Gastrointestinal: Abdominal Pain Physical Examination - Vital Signs Temperature: 97.8 F Blood Pressure: 99/54 Pulse: 84 Respirations: 18 Pulse Ox (%): 97 - Physical Exam General: Alert, In no apparent distress HEENT: Atraumatic, PERRLA, EOMI Neck: Supple, JVD not distended Respiratory: Clear to auscultation bilaterally, Normal air movement Cardiovascular: Regular rate/rhythm, Normal S1 S2 Gastrointestinal: Hypoactive, Tenderness Musculoskeletal: No tenderness Integumentary: No rashes Neurological: Normal speech, Normal tone, Normal affect Lymphatics: No axilla or inguinal lymphadenopathy Assessment & Plan - Problems (Diagnosis) (1) Diverticulitis Onset Date: 02/08/18 Current Visit: No Status: Acute Plan: Continue fluids and antibiotics. Keep her NPO. Will increase her pain meds frequency. May give a trial of clear liquids tomorrow. Seen by Dr. Pacheco. Plan for ot pt colonoscopy (2) Depression Current Visit: Yes Status: Acute Plan: Will hold the clonazepam at this time. As she is getting dilaudid for pain. do not want to cause any respiratory depression. Qualifiers: Depression Type: dysthymia Qualified Code(s): F34.1 - Dysthymic disorder Discharge Plan: Home Plan to discharge in: Greater than 2 days - Code Status/Comfort Care Code Status Assessed: No Code Status: Full Code Physician Review: Patient Assessed, Agree with Above Assessment and Plan Critical Care: No Time Spent Managing Pts Care (In Minutes): 20
[2019-01-12] MEDS ORDERED: BUPIVACAINE 0.5% PF 10 ML VIAL ONE (09:23)
[2019-01-12] MEDS ORDERED: ERTAPENEM SODIUM 1 GM VIAL IVPB ONE (11:02)
[2019-01-12] MEDS ORDERED: MORPHINE 2 MG/ML SYR IV ONE (11:03)
[2019-01-12] MEDS ORDERED: KETOROLAC 30 MG/ML INJ IV ONE (11:03)
[2019-01-12] MEDS ORDERED: ERTAPENEM NA 1 GM in NA CHLORIDE 0.9% 100 ML IVPB ONE (11:15)
--- NOTE | 2019-01-12 12:10 | P.PN ---
Subjective Date of Service: 01/12/19 Chief Complaint: Abdominal pain Subjective: No new changes (Patient states pain is better overnight, but got somewhat worse this AM. She has passed gas, no BM, no emesis, less tender.) Physical Examination - Vital Signs Temperature: 97.8 F Blood Pressure: 111/60 Pulse: 88 Respirations: 18 Pulse Ox (%): 97 - Physical Exam General: Alert, In no apparent distress HEENT: Mucous membr. moist/pink Gastrointestinal: Other (soft, mild to moderate TTP in LLQ, similar to prior exam. ND. ) Assessment And Plan - Current Problems (Diagnosis) (1) Diverticulitis Onset Date: 02/08/18 Current Visit: No Status: Acute - Plan Patient with diverticulitis with phlegmon - Invanz 1 Gram x 1 dose due to intra-abdominal infection - continue IV hydration - toradol x dose - morphine 2mg x 1 dose now - serial exams - continue medical management Physician Review: Patient Assessed, Agree with Above Assessment and Plan
[2019-01-12] MEDS: ENOXAPARIN 40 MG/0.4 ML SQ SCH (16:05)
[2019-01-12] MEDS: D50W 25 GM/50 ML SYRINGE IV PRN (16:39)
[2019-01-13] MEDS: Ringers Lactate 1,000 ML IV SCH (00:01)
[2019-01-13] MEDS: METRONIDAZOLE 500mg IVPB 500 MG/100 ML BAG IV SCH ×5 (00:02→23:30)
[2019-01-13] MEDS: HYDROMORPHONE HCL 1 MG/ML INJ IV PRN ×4 (00:07→23:54)
[2019-01-13] MEDS: PROMETHAZINE 25 MG/ML VIAL IV SCH ×2 (00:08→07:34)
[2019-01-13] MEDS: ONDANSETRON 4 MG/2 ML VIAL IV PRN (05:09)
[2019-01-13] MEDS: PANTOPRAZOLE 40MG TABLET PO SCH (06:30)
[2019-01-13 06:33] LABS: Absolute Lymphocytes (CBC) 1.1 K/uL (0.7-4.9); Absolute Monocytes 0.8 K/uL (0.1-1.3); Absolute Neutrophil 9.5 K/uL (1.8-8.0); Basophils % 0.2 % (0-1.3); Eosinophils % 0.8 % (0-4.4); Hematocrit 33.5 % (36.0-45.0); Lymphocytes % 9.6 % (15.3-44.8); MPV 8.1 fL (7.6-11.3); Monocytes % 6.6 % (3.3-12.3); RBC Red Blood Cell Count 3.59 M/uL (3.86-4.86)
[2019-01-13 06:41] LABS: BUN Blood Urea Nitrogen 7 mg/dL (7-18); Bicarbonate 23 mmol/L (21-32); Glucose Level 80 mg/dL (74-106); Magnesium 1.7 mg/dL (1.8-2.4); Sodium Level 140 mmol/L (136-145)
[2019-01-13] MEDS: INSULIN -REGULAR HUMAN 50 UNIT/0.5 ML ML SQ SCH ×4 (07:26→21:00)
[2019-01-13] MEDS: Levofloxacin 750mg IV 750 MG/150 ML BAG IV SCH (07:34)
[2019-01-13] MEDS: D50W 25 GM/50 ML SYRINGE IV PRN (08:04)
[2019-01-13] MEDS: ACETAMINOPHEN 325 MG TABLET PO SCH ×3 (08:05→21:00)
--- NOTE | 2019-01-13 08:08 | P.PN ---
Subjective Date of Service: 01/13/19 Chief Complaint: Abdominal pain Subjective: Improving (Patient feels much better today, less pain, passing gas, no BM, no emesis, mild improving nausea) Physical Examination - Vital Signs Temperature: 97.9 F Blood Pressure: 109/54 Pulse: 87 Respirations: 20 Pulse Ox (%): 97 - Physical Exam General: Alert, In no apparent distress, Cooperative Gastrointestinal: Non-distended, No ascites, No masses, No rebound, No guarding , Other (mild LLQ Tenderness to deep palpation, improved from prior) Assessment And Plan - Current Problems (Diagnosis) (1) Diverticulitis Onset Date: 02/08/18 Current Visit: No Status: Acute - Plan Patient with diverticulitis with phlegmon - continue IV hydration - serial exams - continue medical management - improving Physician Review: Patient Assessed, Agree with Above Assessment and Plan
[2019-01-13] MEDS ORDERED: PROMETHAZINE 25 MG/ML VIAL IV PRN (08:25)
--- NOTE | 2019-01-13 08:28 | P.PN ---
Subjective Date of Service: 01/13/19 Chief Complaint: Abdominal pain Subjective: Improving (no bm's, is passing celeste) Review of Systems 10-point ROS is otherwise unremarkable Gastrointestinal: Abdominal Pain Physical Examination - Vital Signs Temperature: 97.9 F Blood Pressure: 109/54 Pulse: 87 Respirations: 20 Pulse Ox (%): 97 - Physical Exam General: Alert, In no apparent distress HEENT: Atraumatic, PERRLA, EOMI Neck: Supple, JVD not distended Respiratory: Clear to auscultation bilaterally, Normal air movement Cardiovascular: Regular rate/rhythm, Normal S1 S2 Gastrointestinal: Normal bowel sounds, No tenderness Musculoskeletal: No tenderness Integumentary: No rashes Neurological: Normal speech, Normal tone, Normal affect Lymphatics: No axilla or inguinal lymphadenopathy Assessment & Plan - Problems (Diagnosis) (1) Diverticulitis Onset Date: 02/08/18 Current Visit: No Status: Acute Plan: Continue fluids and antibiotics. start clear liquid diet, advance as tolerated. Will hold the fluids. Asked the patient to walk more as it will help getting her bowels moving. Spend less time in the bed now that her pain is better controlled (2) Depression Current Visit: Yes Status: Acute Plan: Will hold the clonazepam at this time. As she is getting dilaudid for pain. do not want to cause any respiratory depression. Qualifiers: Depression Type: dysthymia Qualified Code(s): F34.1 - Dysthymic disorder Discharge Plan: Home Plan to discharge in: 24 Hours - Code Status/Comfort Care Code Status Assessed: No Physician Review: Patient Assessed, Agree with Above Assessment and Plan Critical Care: No Time Spent Managing Pts Care (In Minutes): 20
[2019-01-13] MEDS ORDERED: MAGNESIUM SULFATE 1 gm IVPB 1 GM/100 ML BAG IV ONE (09:00)
[2019-01-13] MEDS: ENOXAPARIN 40 MG/0.4 ML SQ SCH (17:17)
[2019-01-14] MEDS: METRONIDAZOLE 500mg IVPB 500 MG/100 ML BAG IV SCH (05:18)
[2019-01-14] MEDS: Levofloxacin 750mg IV 750 MG/150 ML BAG IV SCH (05:24)
[2019-01-14] MEDS: PANTOPRAZOLE 40MG TABLET PO SCH (05:24)
[2019-01-14 06:41] LABS: Absolute Lymphocytes (CBC) 1.9 K/uL (0.7-4.9); Absolute Monocytes 0.8 K/uL (0.1-1.3); Basophils % 0.6 % (0-1.3); Eosinophils % 4.9 % (0-4.4); Hematocrit 32.4 % (36.0-45.0); Lymphocytes % 23.8 % (15.3-44.8); MPV 8.3 fL (7.6-11.3); Monocytes % 9.2 % (3.3-12.3); RBC Red Blood Cell Count 3.47 M/uL (3.86-4.86)
[2019-01-14 06:53] LABS: Magnesium 1.8 mg/dL (1.8-2.4); Phosphorus 1.5 mg/dL (2.5-4.9)
[2019-01-14 06:55] LABS: BUN Blood Urea Nitrogen 6 mg/dL (7-18); Bicarbonate 26 mmol/L (21-32); Glucose Level 85 mg/dL (74-106); Potassium 3.9 mmol/L (3.5-5.1); Sodium Level 139 mmol/L (136-145)
[2019-01-14] MEDS: INSULIN -REGULAR HUMAN 50 UNIT/0.5 ML ML SQ SCH (07:30)
[2019-01-14] MEDS: ONDANSETRON 4 MG/2 ML VIAL IV PRN (08:45)
[2019-01-14] MEDS: ACETAMINOPHEN 325 MG TABLET PO SCH (08:51)
[2019-01-14] MEDS ORDERED: POTASS/SODIUM PHOSPHATE 1 PKT POWD.PACK PO ONE (09:00)
--- NOTE | 2019-01-14 09:00 | P.PN ---
Subjective Date of Service: 01/14/19 Chief Complaint: Abdominal pain Subjective: Improving (Patient is comfortable, still has LLQ tenderness at times , but much improved. Manfred diet, ambulatory, having gas and BM, mild nausea, no emesis) Physical Examination - Vital Signs Temperature: 97.3 F Blood Pressure: 115/75 Pulse: 66 Respirations: 16 Pulse Ox (%): 98 - Physical Exam General: Alert, In no apparent distress, Cooperative Gastrointestinal: Other (soft, mild LLQ TTP, ND, no peritoneal signs) Assessment And Plan - Current Problems (Diagnosis) (1) Diverticulitis Onset Date: 02/08/18 Current Visit: No Status: Acute - Plan Patient with diverticulitis with phlegmon - continue hydration with electrolyte solution - serial exams - continue medical management - ok to DC home from surgical standpoint with CT scan in 1 week and follow up in clinic following - 2 weeks of PO levaquin / flagyl at home Physician Review: Patient Assessed, Agree with Above Assessment and Plan
--- NOTE | 2019-01-14 09:37 | P.DS ---
Admission Date: 01/11/19 Discharge Date: 01/14/19 Disposition: ROUTINE DISCHARGE Discharge Condition: FAIR Reason for Admission: Abdominal pain - Problems (1) Diverticulitis Onset Date: 02/08/18 Current Visit: No Status: Acute (2) Depression Current Visit: Yes Status: Acute Qualifiers: Depression Type: dysthymia Qualified Code(s): F34.1 - Dysthymic disorder Brief History of Present Illness: Patient comes in with diverticuloosis. Was admitted by the hospitalist Hospital Course: Seen by Dr. Pacheco. as she had a possible early abcess. The patient was started on iv antibiotics. Surgery not necessary. She could have an outpatient colonoscopy. She is tolerating liquids. Will discharge her on cipro and prn phenergan. Once she tolerates soft diet we can send her home. Vital Signs/Physical Exam: Temp Pulse Resp BP Pulse Ox 97.3 F 66 16 115/75 98 01/14/19 08:59 01/14/19 08:59 01/14/19 08:59 01/14/19 08:59 01/14/19 08:59 General: Alert, In no apparent distress HEENT: Atraumatic, PERRLA, EOMI Neck: Supple, JVD not distended Respiratory: Clear to auscultation bilaterally, Normal air movement Cardiovascular: Regular rate/rhythm, Normal S1 S2 Gastrointestinal: Normal bowel sounds, No tenderness Musculoskeletal: No tenderness Integumentary: No rashes Neurological: Normal speech, Normal tone, Normal affect Lymphatics: No axilla or inguinal lymphadenopathy Laboratory Data at Discharge: WBC 8.1 K/uL (4.3-10.9) D 01/14/19 06:01 Hgb 11.2 g/dL (12.0-15.0) L 01/14/19 06:01 Hct 32.4 % (36.0-45.0) L 01/14/19 06:01 Plt Count 279 K/uL (152-406) 01/14/19 06:01 PT 13.2 SECONDS (9.5-12.5) H 01/11/19 06:35 INR 1.12 01/11/19 06:35 APTT 28.4 SECONDS (24.3-36.9) 01/11/19 06:35 Sodium 139 mmol/L (136-145) 01/14/19 06:01 Potassium 3.9 mmol/L (3.5-5.1) 01/14/19 06:01 BUN 6 mg/dL (7-18) L 01/14/19 06:01 Creatinine 0.63 mg/dL (0.55-1.3) 01/14/19 06:01 Glucose 85 mg/dL (74-106) 01/14/19 06:01 Phosphorus 1.5 mg/dL (2.5-4.9) L 01/14/19 06:01 Magnesium 1.8 mg/dL (1.8-2.4) 01/14/19 06:01 Total Bilirubin 0.6 mg/dL (0.2-1.0) 01/11/19 06:35 AST 11 U/L (15-37) L 01/11/19 06:35 ALT 20 U/L (12-78) 01/11/19 06:35 Alkaline Phosphatase 84 U/L (45-117) 01/11/19 06:35 Lipase 137 U/L (73-393) 01/10/19 21:30 Home Medications: clonazePAM [Klonopin] 0.5 mg PO DAILY PRN 02/06/18 Ciprofloxacin HCl [Cipro 500 MG Tablet] 500 mg PO BID 10 Days #20 tab 01/14/19 Promethazine HCl [Phenergan] 25 mg PO Q6HP PRN 7 Days #30 tab 01/14/19 New Medications: Ciprofloxacin HCl [Cipro 500 MG Tablet] 500 mg PO BID 10 Days #20 tab Promethazine HCl [Phenergan] 25 mg PO Q6HP PRN 7 Days #30 tab PRN Reason: Nausea / Vomiting Diet: [place] Followup: Jero Pacheco MD [ACTIVE - CAN ADMIT] - Eddi Oro MD [Primary Care Provider] - Time spent managing pt's care (in minutes): 30
== END 2019-01-14 12:16 | disposition home or self-care (01) | DRG 392 ==
LOC: ER 20:38 → ERHOLD 01-11 02:41 → 2ND 01-11 03:51
PROVIDERS: ADMIT Internal Medicine; ATTEND Hospitalist
DX: K57.20 Diverticulitis of large intestine with perforation and abscess without bleeding (principal); F32.9 Major depressive disorder, single episode, unspecified; F17.210 Nicotine dependence, cigarettes, uncomplicated
CPT/HCPCS: 36415; 74177; 80048; 80053; 80076; 81003; 82962; 83690; 83735; 84100; 84145; 85025; 85610; 85730; 96361; 96365; 96367; 96375; 99285; J1170; J1335; J1650; J2175; J2270; J2405; J2550; J3475; J7030; Q9967

== ENCOUNTER 2019-03-25 07:16 | Day surgery (SDC) | payer OTHER ==
--- OUTSIDE RECORDS SUMMARY | 2019-03-25 07:18 | XMS REPORT ---
[...] Status Dosage System Date Date Etodolac [facility] 40589876868 300 MG Orally Jul 13, Active 1 capsule Twice a day 2018 with food Clonazepam [facility] 31038540870 0.5 MG Orally Active 1 tablet PRN for anxiety at bedtime ProAir HFA [facility] 98462617728 108 (90 Base) Sep 24, Active 2 puffs as MCG/ACT 2018 needed Inhalation every 6 hrs Amoxicillin ND 35683496598 875 MG Orally Sep 14, Sep 21, Active 1 capsule Twice a day 2018 2019 BuPROPion HCl ND 68162371457 150 MG Orally Sep 14, Active 1 tablet ER (Smoking Once a day 2019 in the Det) morning Results No Known Results Summary Purpose eClinicalWorks Submission
--- OUTSIDE RECORDS SUMMARY | 2019-03-25 07:18 | XMS REPORT ---
[...] End Status Dosage System Date Date Etodolac [facility] 96436383991 300 MG Orally Jul 13, Active 1 capsule Twice a day 2017 with food BuPROPion HCl ND 17576617433 150 MG Orally Sep 14, Active 1 tablet ER (Smoking Once a day 2019 in the Det) morning Clonazepam ND 67210855435 0.5 MG Orally Active 1 tablet PRN for anxiety at bedtime ProAir HFA [facility] 32448101795 108 (90 Base) Sep 24, Active 2 puffs as MCG/ACT 2018 needed Inhalation every 6 hrs Results Name Result Date Reference Range Unit Abnormality Flag URINALYSIS AUTO W/O SCOPE (69995) ----NIT neg 20181027 ----URO 0.2 20181027 ----PROTEIN Neg 20181027 ----pH 7.0 20181027 ----BLO Neg 20181027 ----GLUCOSE Neg 20181027 ----LIBERTAD Neg 20181027 ----BILIRUBIN Neg 20181027 ----KETONES Neg 20181027 ----SPECIFIC GRAVITY <=1.005 20181027 Abdomen 1 View (KUB) Summary Purpose eClinicalWorks Submission
--- OUTSIDE RECORDS SUMMARY | 2019-03-25 07:19 | XMS REPORT ---
:1990 Author Organization eClinicalWorks Care Team Providers Name Role Phone Eddi Oro Provider Role Unavailable Allergies No Known Allergies Problems Problem Type Condition Code Onset Dates Condition Status Problem Sinus problem J34.9 Active Problem Diverticular disease K57.90 Active Problem Depression with anxiety F41.8 Active Problem Diverticulitis of large intestine K57.20 Active with perforation and abscess without bleeding Problem Mild intermittent reactive airway J45.20 Active disease without complication Problem Diverticulitis K57.92 Active Problem Cigarette nicotine dependence F17.210 Active without complication Problem Anxiety F41.9 Active Problem Diarrhea, unspecified type R19.7 Active Problem Left lower quadrant pain R10.32 Active Problem Calcaneal spur of left foot M77.32 Active Assessment Right ear impacted cerumen H61.21 Active Problem Diverticula of colon K57.30 Active Assessment Viral upper respiratory tract J06.9 Active infection Problem Seasonal and perennial allergic J30.9 Active rhinitis Medications Medication Code Code Instructions Start End Status Dosage System Date Date Carbinoxamine [facility] 31628589478 4 MG Orally March 18March Active 1 tablet as Maleate Three times a 2018 22, needed day 2019 Clonazepam ND 33448397945 0.5 MG Orally Active 1 tablet at PRN for anxiety bedtime ProAir HFA [facility] 04967377800 108 (90 Base) Sep 24, Active 2 puffs as MCG/ACT 2017 needed Inhalation every 6 hrs BuPROPion HCl ER ND 48850986202 150 MG Orally Sep 14, Active 1 tablet in (Smoking Det) Once a day 2018 the morning Fluticasone ND 20996799262 50 MCG/ACT December Active 1 spray in Propionate Nasally Once a 2018 each day nostril Debrox ND 95054897927 6.5 % Otic March 18March Active 5 drops Twice a day 2018 16, into 2019 affected ear Etodolac ND 02986292512 300 MG Orally Jul 13, Active 1 capsule Twice a day 2018 with food ProAir HFA ND 26039106611 108 (90 Base) December Active as directed MCG/ACT 2018 Inhalation q 4hrs prn Results No Known Results Summary Purpose eClinicalWorks Submission
--- OUTSIDE RECORDS SUMMARY | 2019-03-25 07:19 | XMS REPORT ---
[...] End Date Status Dosage System Date Fluticasone [facility] 46925125828 50 MCG/ACT December Active 1 spray in Propionate Nasally Once a 2018 each day nostril RyVent ND 14882395681 6 MG Orally December Active 1 tablet on Three times a 2018 an empty day stomach as needed ProAir HFA [facility] 27641280407 108 (90 Base) Sep 24, Active 2 puffs as MCG/ACT 2017 needed Inhalation every 6 hrs Etodolac ND 08019356821 300 MG Orally Jul 13, Active 1 capsule Twice a day 2017 with food Clonazepam ND 03673723571 0.5 MG Orally Active 1 tablet at PRN for anxiety bedtime BuPROPion HCl ND 65391358702 150 MG Orally Sep 14, Active 1 tablet in ER (Smoking Once a day 2019 the morning Det) ProAir HFA ND 98771460987 108 (90 Base) December Active as directed MCG/ACT 2018 Inhalation q 4hrs prn Results No Known Results Summary Purpose eClinicalWorks Submission
--- OUTSIDE RECORDS SUMMARY | 2019-03-25 07:19 | XMS REPORT ---
:1990 Author Organization eClinicalWorks Care Team Providers Name Role Phone Jero Pacheco Provider Role Unavailable Allergies No Known Allergies Problems Problem Type Condition Code Onset Dates Condition Status Problem Seasonal and perennial allergic J30.9 Active rhinitis Problem Depression with anxiety F41.8 Active Problem Sinus problem J34.9 Active Problem Mild intermittent reactive airway J45.20 Active disease without complication Problem Left lower quadrant pain R10.32 Active Problem Diverticulitis K57.92 Active Problem Anxiety F41.9 Active Problem Diverticular disease K57.90 Active Problem Diarrhea, unspecified type R19.7 Active Problem Cigarette nicotine dependence F17.210 Active without complication Assessment Diverticulitis K57.92 Active Assessment Diarrhea, unspecified type R19.7 Active Problem Calcaneal spur of left foot M77.32 Active Assessment Left lower quadrant pain R10.32 Active Problem Diverticula of colon K57.30 Active Medications No Known Medications Results No Known Results Summary Purpose eClinicalWorks Submission
--- OUTSIDE RECORDS SUMMARY | 2019-03-25 07:19 | XMS REPORT ---
:1990 Author Organization eClinicalWorks Care Team Providers Name Role Phone Jero Pacheco Provider Role Unavailable Allergies, Adverse Reactions, Alerts [...] spur of left foot M77.32 Active Problem Diverticula of colon K57.30 Active Assessment Diverticulitis of large intestine K57.20 Active with perforation and abscess without bleeding Problem Seasonal and perennial allergic J30.9 Active rhinitis Medications Medication Code Code Instructions Start End Status Dosage System Date Date Etodolac ND 47982663800 300 MG Orally Jul 13, Active 1 capsule Twice a day 2017 with food ProAir HFA [facility] 75430627654 108 (90 Base) December Active as directed MCG/ACT 2018 Inhalation q 4hrs prn BuPROPion HCl ND 57682201394 150 MG Orally Sep 14, Active 1 tablet in ER (Smoking Once a day 2019 the morning Det) ProAir HFA ND 45898033414 108 (90 Base) Sep 24, Active 2 puffs as MCG/ACT 2017 needed Inhalation every 6 hrs Fluticasone ND 95091665760 50 MCG/ACT December Active 1 spray in Propionate Nasally Once a 2018 each day nostril Clonazepam ND 28820109961 0.5 MG Orally Active 1 tablet at PRN for anxiety bedtime Results No Known Results Summary Purpose eClinicalWorks Submission
--- OUTSIDE RECORDS SUMMARY | 2019-03-25 07:19 | XMS REPORT ---
:1990 Author Organization eClinicalWorks Care Team Providers Name Role Phone Jero Pacheco Provider Role Unavailable Allergies No Known Allergies Problems Problem Type Condition Code Onset Dates Condition Status Problem Seasonal and perennial allergic J30.9 Active rhinitis Problem Depression with anxiety F41.8 Active Problem Sinus problem J34.9 Active Problem Calcaneal spur of left foot M77.32 Active Problem Diverticula of colon K57.30 Active Problem Mild intermittent reactive airway J45.20 Active disease without complication Problem Left lower quadrant pain R10.32 Active Problem Diverticulitis K57.92 Active Problem Anxiety F41.9 Active Problem Diverticular disease K57.90 Active Problem Diarrhea, unspecified type R19.7 Active Problem Cigarette nicotine dependence F17.210 Active without complication Medications No Known Medications Results No Known Results Summary Purpose eClinicalWorks Submission
[2019-03-25 07:30] LABS: Specific Gravity 1.025 (1.005-1.030)
[2019-03-25] MEDS ORDERED: Ringers Lactate 1,000 ML IV ONE (08:00)
[2019-03-25] MEDS ORDERED: PROPOFOL 200 MG/20 ML VIAL IV ONE (08:29)
[2019-03-25] MEDS ORDERED: LIDOCAINE 1% MPF 2 ML AMPULE ONE (08:29)
[2019-03-25] MEDS ORDERED: MIDAZOLAM HCL 2 MG/2 ML INJ ONE (08:48)
--- NOTE | 2019-03-25 08:53 | ENDO RPT ---
[address], [address] COLONOSCOPY PROCEDURE REPORT EXAM DATE: 03/25/2019 PATIENT NAME: Fawn Larson MR #: [id number] BIRTHDATE: 1990 ATTENDING: Jero Pacheco DR STATUS: outpatient WEEKEND ANCHOR: Dimitrios Tilley RN, Shwetha Luna RN, and Nayan Thornton [facility] INDICATIONS: The patient is a 28 yr old Female here for a colonoscopy due to diverticulitis PROCEDURE PERFORMED: Colonoscopy with biopsy MEDICATIONS: Per Anesthesia. ESTIMATED BLOOD LOSS: None CONSENT: The patient understands the risks and benefits of the procedure and understands that these risks include, but are not limited to: sedation, allergic reaction, infection, perforation and/or bleeding. Alternative means of evaluation and treatment include, among others: physical exam, x-rays, and/or surgical intervention. The patient elects to proceed with this endoscopic procedure. DESCRIPTION OF PROCEDURE: During intra-op preparation period all mechanical medical equipment was checked for proper function. Hand hygiene and appropriate measures for infection prevention was taken. Procedure, possible complications, alternatives including, but not limited to possibility of bleeding, perforation, tear, infection, sepsis, need for surgery, need for blood transfusion, were explained to the patient. After the risks, benefits and alternatives of the procedure were thoroughly explained, Informed consent was verified, confirmed and timeout was successfully executed by the treatment team. The patient was placed in the left lateral position. A digital rectal exam was performed and revealed internal hemorrhoids. After appropriate level of anesthesia, the scope was passed. The EC-[id number] ([id number]) endoscope was introduced through the anus and advanced to the cecum, which was identified by both the appendix and ileocecal valve. The quality of the prep was fair. The instrument was then slowly withdrawn as the colon was fully examined. Scope withdrawal time was 9 minutes. COLON FINDINGS: There was moderate diverticulosis noted in the sigmoid colon with associated angulation. No bleeding was noted from the diverticulosis. 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 A biopsy was performed using cold forceps. Small internal hemorrhoids were found. Retroflexed views revealed no abnormalities. The scope was then completely withdrawn from the patient and the procedure terminated. ADVERSE EVENTS: There were no complications. IMPRESSIONS: 1. There was moderate diverticulosis noted in the sigmoid colon 2. 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 Small internal hemorrhoids RECOMMENDATIONS: 1. follow-up: office 2 week(s) 2. await biopsy results 3. avoid NSAIDS for 2 weeks 4. hemorrhoidal hygiene 5. increase dietary water 6. low fiber / diverticular diet RECALL: Return in 10 year(s) for Colonoscopy, pending biopsy results. Jero Pacheco DR eSigned: Jero Pacheco DR 03/25/2019 8:53 AM cc: CPT CODES: ICD9 CODES: PATIENT NAME: Dominick Larsonci MargoDanis MR#: [id number]
== END 2019-03-25 09:20 | disposition home or self-care (01) ==
LOC: OR 07:16
PROVIDERS: ATTEND Surgery
PROC: 0DBN8ZX Excision of Sigmoid Colon, Via Natural or Artificial Opening Endoscopic, Diagnostic (ICD-10-PCS; principal; 2019-03-25 08:30)
DX: K92.1 Melena (principal); K57.30 Diverticulosis of large intestine without perforation or abscess without bleeding; K64.8 Other hemorrhoids; Z87.19 Personal history of other diseases of the digestive system; F41.8 Other specified anxiety disorders; F17.210 Nicotine dependence, cigarettes, uncomplicated; Z79.899 Other long term (current) drug therapy
CPT/HCPCS: 81025; 88305; J2001; J2250; J2704